=== PATIENT | female | born 1950 | race Caucasian/White ===

== ENCOUNTER → 2017-05-09 | Outpatient (CLI) | payer MEDICARE ==
--- NOTE | 2017-05-09 11:36 | Diagnostic Imaging Report ---
INDICATION: Screening. TECHNIQUE: Screening digital mammography was performed bilaterally with a Computer Aided Detection (CAD) system. COMPARISON: 05/02/2016, 10/14/2014, and 09/26/2013. FINDINGS: There is a moderate amount of residual fibroglandular tissue bilaterally. There is a stable coarse calcification in the 12 o'clock position of the right breast. There are vascular calcifications. There is no new dominant mass, spiculated lesion, or suspicious calcification identified. IMPRESSION: Benign findings. ACR BI-RADS Category 2: Benign findings. Result letter will be mailed to the patient. Note: At least 10% of breast cancer is not imaged by mammography. Dictated by: Dictated on workstation # [id number]
== END ==
LOC: RAD 09:24
PROVIDERS: ATTEND Family Medicine
DX: Z12.31 Encounter for screening mammogram for malignant neoplasm of breast (principal)
CPT/HCPCS: 77067

== ENCOUNTER 2020-02-05 19:10 | Inpatient (IN) | payer MEDICARE ==
[~2020-02-05] VITALS: Ht 172 cm; Wt 78.2 kg
--- NOTE | 2020-02-05 19:22 | NUR ---
[address] via cart with monitor by TIFFANIE Mesa. [address] to room. Post CT NIH scale completed. [address] for CTA via cart by TIFFANIE Mesa. 2009 Patient returned from CTA.
[2020-02-05 19:25] LABS: BASOPHILS % (AUTO) 0 % (0-10); EOSINOPHILS # (AUTO) 0.1 10^3/uL (0.0-0.3); EOSINOPHILS % (AUTO) 1 % (0-10); HEMATOCRIT 44 % (35-52); HEMOGLOBIN 15.1 G/DL (11.5-16.0); LYMPHOCYTES # (AUTO) 1.5 X 10^3 (1.0-4.0); LYMPHOCYTES % (AUTO) 22 % (12-44); MEAN CORPUSCULAR HEMOGLOBIN 30 PG (25-34); MEAN CORPUSCULAR HGB CONC 35 G/DL (32-36); MEAN CORPUSCULAR VOLUME 87 FL (80-99); MONOCYTES # (AUTO) 0.3 X 10^3 (0.0-1.0); MONOCYTES % (AUTO) 4 % (0-12); NEUTROPHILS # (AUTO) 5.1 X 10^3 (1.8-7.8); NEUTROPHILS % (AUTO) 73 % (42-75); PLATELET COUNT 186 10^3/uL (130-400); RED CELL DISTRIBUTION WIDTH 13.7 % (10.0-14.5); WHITE BLOOD COUNT 6.9 10^3/uL (4.3-11.0)
--- NOTE | 2020-02-05 19:30 | ED Neurological Problem ---
General Stated Complaint: POSSIBLE STROKE SYMPTOMS Source: patient History of Present Illness Date Seen by Provider: February 05, 2020 Time Seen by Provider: 19:15 Initial Comments PT ARRIVES VIA POV FROM HOME STATES AROUND NOON TODAY, SHE BEGAN HAVING RIGHT SIDE WEAKNESS STATES SHE WAS FINE WHEN SHE GOT UP THIS MORNING--HAS BEEN TO GET A HAIRCUT, CAME HOME, ATE BREAKFAST AND THEN WAS DRINKING COFFEE, WHEN SYMPTOMS BEGAN STATES THAT HER RIGHT LEG IS DRAGGING AND HAS DECREASED STRENGTH IN RIGHT HAND--STATES I COULDN'T PUSH THE BUTTONS ON RT [employer] Services" NO PARESTHESIAS NO CHEST PAIN OR SHORTNESS OF BREATH NO HEADACHE NO VISION CHANGES NO DIZZINESS NO PALPITATIONS NO PROBLEMS SWALLOWING, BUT THINKS HER SPEECH MIGHT HAVE BEEN A LITTLE SLURRED EARLIER-HAD PROBLEMS WITH WORDS WITH AN "S"--THOSE SYMPTOMS RESOLVED STATES SHE DID NOT SLEEP WELL AT ALL LAST NIGHT, AND HAD A LOW BACK ACHE DURING THE NIGHT, NO COMPLAINTS OF BACK PAIN NOW. NO HISTORY OF SIMILAR PT STATES HER BLOOD PRESSURE HAS BEEN A LITTLE ELEVATED AT TIMES, BUT HAS NEVER BEEN PRESCRIBED MEDICATIONS FOR BLOOD PRESSURE, OTHERWISE NO SIGNIFICANT MEDICAL PROBLEMS NO FEVER OR RECENT ILLNESS NO SICK CONTACTS OR KNOWN EXPOSURE TO CORONAVIRUS PCP: DR. BOND Allergies and Home Medications Allergies Coded Allergies: Penicillins (Verified Allergy, Severe, 02/05/20) "HIVES AND THROAT SWELLING" Sulfa (Sulfonamide Antibiotics) (Verified Allergy, Severe, 02/05/20) "HIVES AND THROAT SWELLING" Patient Home Medication List Home Medication List Reviewed: Yes Review of Systems Review of Systems Constitutional: no symptoms reported; No chills, No diaphoresis, No dizziness, No fever, No malaise, No weakness Eyes: No Symptoms Reported; Denies Blurred Vision, Denies Decreased Acuity, Denies Pain Ears, Nose, Mouth, Throat: no symptoms reported Respiratory: no symptoms reported; No cough, No short of breath Cardiovascular: no symptoms reported; No chest pain, No edema, No palpitations, No syncope, No vascular heart diseas Gastrointestinal: no symptoms reported; No nausea, No vomiting Genitourinary: no symptoms reported Musculoskeletal: see HPI Skin: no symptoms reported Psychiatric/Neurological: See HPI; Denies Cognitive Dysfunction, Denies Heada lexii, Denies Numbness, Denies Tingling Endocrine: No Symptoms Reported Hematologic/Lymphatic: No Symptoms Reported Past Fdwebec-Qurhqe-Kotxnu Hx Past Med/Social Hx: Reviewed and Corrections made Patient Social History Alcohol Use: Regular Use (DRINK WITH DINNER EVERY NIGHT) Recreational Drug Use: No Smoking Status: Never a Smoker Recent Foreign Travel: No Contact w/Someone Who Travel: No Past Medical History Surgeries: Yes (HYST/BSO) Hysterectomy, Oophorectomy Respiratory: No Cardiac: Yes (OCCASIONAL HTN--NEVER BEEN PRESCRIBED MEDICATIONS) Hypertension 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 oz. kg; BMI Method: General Appearance: WD/WN, no apparent distress HEENT: PERRL/EOMI, normal ENT inspection, TMs normal, pharynx normal Neck: non-tender, full range of motion, supple, normal inspection; No carotid bruit Respiratory: normal breath sounds, no respiratory distress, no accessory muscle use Cardiovascular: normal peripheral pulses, regular rate, rhythm, no edema, no JVD, no murmur Peripheral Pulses: 2+ Dorsalis Pedis (R), 2+ Left Dors-Pedis (L), 2+ Radial Pulses (R), 2+ Radial Pulses (L) Gastrointestinal: normal bowel sounds, non tender, soft, no organomegaly Back: normal inspection, no CVA tenderness, no vertebral tenderness Extremities: non-tender, no pedal edema, no calf tenderness 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, alert, normal mood/affect, oriented x 3; No abnormal assembly technician II-XII, No aphasia, No EOM palsy, No facial droop; motor weakness; No sensory deficit; other (MILD RIGHT ARM AND LEG WEAKNESS) Crainal Nerves: normal hearing, normal speech, PERRL; No abnormal speech, No facial droop, No facial paresthesias, No facial weakness, No gaze palsy, No hearing deficit (R), No hearing deficit (L) Motor/Sensory: no sensory deficit, weak motor strength RUE, weak motor strength RLE Reflexes: 2+ Bicep (R), 2+ Bicep (L), 2+ Knee (R), 2+ Knee (L) Skin: normal color, warm/dry Stroke NIH Stroke Scale Assessment Select: Initial Level of Consciousness: 0=Alert (0), Level of Consciousness- Questions: 0=Answers both month/age (0), LOC Commands: 0=Performs both tasks (0), Gaze: Normal (0), Visual Phillip: 0=No visual loss (0), Facial Movement (Facial Paresis): 0=Normal symmetrical mnt (0), Motor Function-Arms Right: 1=Drift (1), Motor Function-Arms Left: 0=No drift (0), Motor Function-Legs Right: 1=Drift (1), Motor Function-Legs Left: 0=No drift (0), Limb Ataxia: 0=Absent (0), Sensory: 0=Normal:no loss (0), Best Language: 0=No aphasia (0), Dysarthria: 0=Normal (0), Extinction & Inattention: 0=No abnormality (0), Total: 2 Stroke Thrombolytic Exclusion Age 18 or Over: Yes Acute intenal hemorrhage: No History of CVA: No Uncontrolled Coagulation Defec: No Intracranial Hemorrhage: No Severe Hypertension: No GI or Bleed: No Subarachnoid Hemorrhage: No Intracranial Neoplasm/Aneurysm: No Oral Anticoagulants: No Surgery or Trauma: No Puncture of Non-Compressible V: No Recent CPR: No Diabetic Hemorrhagic Retinopat: No Organ Biopsy: No Recent Obstetric Delivery: No Glucose: No Significant Hepatic Dysfunctio: No NIH Stoke Scale >22: No Bacterial Endocarditis: No Pericarditis: No Improving Symptoms: No Platelets: No TPA Contraindication: No IV - TPa Received IV - TPa Procedure Performed?: No (ONSET OF SYMPOTMS > 7 HOURS, AND NIH OF 2) Progress/Results/Core Measures Results/Orders Lab Results Laboratory Tests Test 02/05/20 18:19 02/05/20 19:19 Range/Units White Blood Count 6.9 4.3-11.0 10^3/uL Red Blood Count 5.00 4.35-5.85 10^6/uL Hemoglobin 15.1 11.5-16.0 G/DL Hematocrit 44 35-52 % Mean Corpuscular Volume 87 80-99 FL Mean Corpuscular Hemoglobin 30 25-34 PG Mean Corpuscular Hemoglobin Concent 35 32-36 G/DL Red Cell Distribution Width 13.7 10.0-14.5 % Platelet Count 186 130-400 10^3/uL Mean Platelet Volume 11.0 H 7.4-10.4 FL Neutrophils (%) (Auto) 73 42-75 % Lymphocytes (%) (Auto) 22 12-44 % Monocytes (%) (Auto) 4 0-12 % Eosinophils (%) (Auto) 1 0-10 % Basophils (%) (Auto) 0 0-10 % Neutrophils # (Auto) 5.1 1.8-7.8 X 10^3 Lymphocytes # (Auto) 1.5 1.0-4.0 X 10^3 Monocytes # (Auto) 0.3 0.0-1.0 X 10^3 Eosinophils # (Auto) 0.1 0.0-0.3 10^3/uL Basophils # (Auto) 0.0 0.0-0.1 10^3/uL Prothrombin Time 14.0 12.2-14.7 SEC INR Comment 1.0 0.8-1.4 Activated Partial Thromboplast Time 28 24-35 SEC D-Dimer 0.28 0.00-0.49 UG/ML Sodium Level 142 135-145 MMOL/L Potassium Level 3.8 3.6-5.0 MMOL/L Chloride Level 108 H 98-107 MMOL/L Carbon Dioxide Level 23 21-32 MMOL/L Anion Gap 11 5-14 MMOL/L Blood Urea Nitrogen 14 7-18 MG/DL Creatinine 0.94 0.60-1.30 MG/DL Estimat Glomerular Filtration Rate 59 BUN/Creatinine Ratio 15 Glucose Level 192 H 70-105 MG/DL Calcium Level 9.4 8.5-10.1 MG/DL Corrected Calcium 9.1 8.5-10.1 MG/DL Total Bilirubin 0.6 0.1-1.0 MG/DL Aspartate Amino Transf (AST/SGOT) 26 5-34 U/L Alanine Aminotransferase (ALT/SGPT) 31 0-55 U/L Alkaline Phosphatase 68 40-136 U/L Troponin I < 0.028 <0.028 NG/ML Total Protein 7.0 6.4-8.2 GM/DL Albumin 4.4 3.2-4.5 GM/DL Glucometer 179 H 70-110 MG/DL My Orders Orders - HERMAN,PERRY K DO Cbc With Automated Diff (02/05/20 19:17) Protime With Inr (02/05/20 19:17) Partial Thromboplastin Time (02/05/20 19:17) Comprehensive Metabolic Panel (02/05/20 19:17) Fibrin Degradation Products (02/05/20 19:17) Troponin I (02/05/20 19:17) Ua Culture If Indicated (02/05/20 19:17) Chest 1 View, Ap/Pa Only (02/05/20 19:17) Ekg Tracing (02/05/20 19:17) Nothing By Mouth (02/06/20 Breakfast) Accucheck Stat ONCE (02/05/20:17) Ed Iv/Invasive Line Start (02/05/20 19:17) Ed Iv/Invasive Line Start (02/05/20 19:17) Vital Signs Stroke Patient Q15M (02/05/20 19:17) Ct Head Wo-R/O Stroke (02/05/20 19:17) O2 (02/05/20:17) Intake & Output 06,14,22 (02/05/20 19:17) Monitor-Rhythm Ecg Trace Only (02/05/20 19:17) Dysphagia Screening Tool (02/05/20 19:) Lipid Panel (02/06/20 06:00) Ct Angio Head/Neck (02/05/20 19:42) Ed Iv/Invasive Line Start (02/05/20 19:46) Ns Iv 1000 Ml (Sodium Chloride 0.9%) (02/05/20 19:46) Iohexol Injection (Omnipaque 350 Mg/Ml 1 (02/05/20 20:00) Received Contrast (Hold Metformin- Contr (02/05/20 20:00) Ns (Ivpb) (Sodium Chloride 0.9% Ivpb Bag (02/05/20 20:00) Medications Given in ED Current Medications Medications Dose Ordered Sig/Antonia Route Start Time Stop Time Status Last Admin Dose Admin Iohexol 75 ml ONCE ONCE IV 02/05/20 20:00 02/05/20 20:01 DC 02/05/20 20:11 75 ML Sodium Chloride 100 ml ONCE ONCE IV 02/05/20 20:00 02/05/20 20:01 DC 02/05/20 20:11 80 ML Vital Signs/I&O 02/05/20 19:10 Temp 37.0 Pulse 91 Resp 20 B/P (MAP) 184/105 (131) Pulse Ox 97 O2 Delivery Room Air Progress Progress Note : Progress Note NO DETERIORATION IN PT'S CONDITION DURING ER STAY GIVEN LABETALOL FOR ELEVATED BLOOD PRESSURE--PRESSURE BEGINNING TO LOWER AT TIME OF ADMIT Initial ECG Impression Date: February 05, 2020 Initial ECG Impression Time: 19:45 Initial ECG Rate: 83 Initial ECG Rhythm: Normal Sinus Initial ECG Comparisson: No Previous ECG Available Diagnostic Imaging Comments CXR--NO ACUTE PROCESS CT HEAD-- IMPRESSION: No hemorrhage, edema, or acute appearing abnormalities identified PER RADIOLOGIST REPORTS AT 1940 CT ANGIOGRAM OF HEAD/NECK--PER RADIOLOGIST REPORT AT 2029 IMPRESSION: Unremarkable CT angiographic study of neck and head. No large vessel occlusion, thrombus or hemodynamically significant stenosis. Reviewed: Reviewed by Me Departure Communication (Admissions) 2004--DISCUSSED WITH DR. BOND, ACCEPTS PT FOR ADMIT, PENDING CT ANGIOGRAM RESULTS Impression Primary Impression: CVA WITH MILD RIGHT SIDED WEAKNESS Additional Impressions: Malignant hypertension Hyperglycemia Disposition: ADMITTED INPATIENT Condition: Stable Admissions Decision to Admit Reason: Admit from ER (General) Decision to Admit/Date: February 05, 2020 Time/Decision to Admit Time: 20:05 Departure-Patient Inst. Referrals: ANA PAULA BOND DO (PCP/Family) Primary Care Physician PERRY SUTTON DO February 05, 2020 19:30
[2020-02-05 19:35] LABS: ALBUMIN 4.4 GM/DL (3.2-4.5); CHLORIDE 108 MMOL/L (98-107); POTASSIUM 3.8 MMOL/L (3.6-5.0); SODIUM 142 MMOL/L (135-145)
--- NOTE | 2020-02-05 19:35 | Diagnostic Imaging Report ---
INDICATION: Right-sided weakness, symptoms 7 hours in duration with hypertension. FINDINGS: The heart size and configuration are normal. The lungs are clear. No failure, effusion, or pneumothorax. No free air beneath the diaphragms. IMPRESSION: Normal frontal chest. Dictated by: Dictated on workstation # [id number]
[2020-02-05 19:36] LABS: CALCIUM 9.4 MG/DL (8.5-10.1)
--- NOTE | 2020-02-05 19:36 | Diagnostic Imaging Report ---
PROCEDURE: CT head wo r/o stroke. TECHNIQUE: Multiple contiguous axial images were obtained through the brain without the use of intravenous contrast. Auto Exposure Controls were utilized during the CT exam to meet ALARA standards for radiation dose reduction. INDICATION: Speech problems, head pain and dizziness, right-sided weakness, symptoms of 7 hours duration, hypertensive patient. There are intracranial atherosclerotic vascular calcifications. There is incidental calcifications in the left basal ganglia. There were no findings of intracerebral involvement by hemorrhage. No focal or generalized cerebral edema. No sulcal effacement. No loss of the normal cortical callahan-white matter differentiations. No suspicious asymmetric intraluminal arterial hyperdensities. No abnormal extra-axial fluid collection. There was no mass or mass effect. Orbits, sinuses, and calvarium all appeared nonacute. IMPRESSION: No hemorrhage, edema, or acute appearing abnormalities identified Dictated by: Dictated on workstation # [id number]
[2020-02-05 19:38] LABS: GLUCOSE 192 MG/DL (70-105)
[2020-02-05 19:39] LABS: CARBON DIOXIDE 23 MMOL/L (21-32)
[2020-02-05 19:40] LABS: BILIRUBIN,TOTAL 0.6 MG/DL (0.1-1.0)
[2020-02-05 19:41] LABS: ALKALINE PHOSPHATASE 68 U/L (40-136); CREATININE SERUM 0.94 MG/DL (0.60-1.30); GFR ESTIMATED 59
[2020-02-05 19:42] LABS: BUN/CREATININE RATIO 15
[2020-02-05 19:44] LABS: ALANINE AMINOTRANSFERASE 31 U/L (0-55)
[2020-02-05] MEDS ORDERED: NS IV 1000 ML 1,000 ML IV SCH (19:46)
[2020-02-05] MEDS ORDERED: HOLD METFORMIN - RECEIVED CONTRAST 20 ML VIAL IV SCH (20:00)
[2020-02-05] MEDS ORDERED: IOHEXOL 350 MG/ML 100 ML (OMNIPAQUE 350) VIAL IV ONE (20:00)
[2020-02-05] MEDS ORDERED: NS 100 ML (IVPB) BAG IV ONE (20:00)
--- NOTE | 2020-02-05 20:22 | Diagnostic Imaging Report ---
PROCEDURE: CT angiography of the head and CT angiography of the neck with and without contrast. TECHNIQUE: Contiguous noncontrast images were obtained from the skull base through the vertex. After intravenous contrast administration, helical CT angiography of the neck was performed. Source data was reformatted into 3D MIP projections. Delayed post contrast acquisition was also obtained. Auto Exposure Controls were utilized during the CT exam to meet ALARA standards for radiation dose reduction. INDICATION: Possible strokelike symptoms, difficulty with speech, head pain and dizziness. FINDINGS: CT angiogram neck: Cervical vertebral arteries patent and codominant. The bilateral common carotid arteries are patent. Carotid bifurcations are widely patent. The cervical internal carotids are widely patent. CT angiogram head: The intradural vertebral arteries, the basilar and the bilateral ENGINE DISPATCHER segments are unremarkable. The intracranial ICAs reveal non-stenosing mild eccentric calcified plaques at their cavernous segments. The A1 segments, the ACOM and the paired anterior cerebral arteries are unremarkable. Bilateral middle cerebral arterial segments and primary branches show no gross asymmetry, filling defect or intraluminal thrombus. There is no evidence for large vessel occlusion. Delayed images show normal enhancement of the major dural venous sinuses with no abnormal parenchymal or meningeal enhancement appreciable. No aneurysm or vascular malformation. IMPRESSION: Unremarkable CT angiographic study of neck and head. No large vessel occlusion, thrombus or hemodynamically significant stenosis. Dictated by: Dictated on workstation # [id number]
[2020-02-05 20:25] LABS: FIBRIN DEGRADATION PRODUCTS 0.28 UG/ML (0.00-0.49)
[2020-02-05] MEDS ORDERED: CLOPIDOGREL 300 MG (PLAVIX) TABLET PO ONE ×2 (20:45→20:54)
[2020-02-05] MEDS ORDERED: LABETALOL HCL 20 MG/4 ML VIAL IV ONE (20:45)
--- NOTE | 2020-02-05 21:18 | NUR ---
Patient passed dysphagia test without difficulty. Patient able to swallow pills without any problems.
[2020-02-05 21:28] LABS: BILIRUBIN,URINE NEGATIVE (NEGATIVE); CLARITY,URINE CLEAR; COLOR,URINE YELLOW; GLUCOSE, URINE (UA) NEGATIVE (NEGATIVE); KETONES,URINE NEGATIVE (NEGATIVE); LEUKOCYTE ESTERASE ,URINE NEGATIVE (NEGATIVE); NITRITE,URINE NEGATIVE (NEGATIVE); PROTEIN,URINE NEGATIVE (NEGATIVE)
[2020-02-05 22:01] VITALS: BP 178/81
[2020-02-05 22:15] VITALS: BP 166/74
[2020-02-05 22:15] LABS: BACTERIA,URINE NEGATIVE /HPF; SQUAMOUS EPITHELIAL CELL,UR RARE /HPF
[2020-02-05 22:30] VITALS: BP 156/73
[2020-02-05 22:45] VITALS: BP 156/74
--- OUTSIDE RECORDS SUMMARY | 2020-02-05 22:56 | XMS REPORT | CCD ---
Author Author Maria G Odell D.O. Organization [facility] Address [address] [place] [phone] Phone Care Team Providers Care Transcribing Machine Mechanic Name Role Phone PP Unavailable CCM Unavailable Summary Purpose Interface Exchange Insurance Providers Payer name Policy type / Coverage type Covered democrat ID Effective Begin Date Effective End Date WPS MEDICARE [place] B [place] Medicare [id number] 2014 Unknown Blue Cross Blue Shield Medicare [id number] 2014 Unknown Family history Father Diagnosis Age At Onset No Family Disease Entered N/A Mother Diagnosis Age At Onset No Family Disease Entered N/A Social History Social History Element Codes Description Effective Dates Marital status Unknown M arried 09/17/2013 Number of children Unknown 1 09/17/2013 Employment Unknown 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 09/17/[address]: 8965424 Former smoker 09/17/[address]: 937166 Currently drinks alcohol 09/17/2013 Allergies, Adverse Reactions, Alerts Substance Reaction Codes Entered Date Inactivated Date Status * NO KNOWN FOOD DONN RGIES Unknown 09/17/2013 No Inactive Date Active * NO KNOWN ENVIRONME NTAL ALLERGIES Unknown 09/17/2013 No Inactive Date Active _ Unknown 09/17/2013 No Inactive Date Active PENICILLINS Unknown 09/17/2013 No In active Date Active Past Medical History Illness Codes Condition Status Onset Date Resolved Date Encounter for daniel l adult medical examination without abnormal findings ICD-9: V70.0 ICD-10: Z00.00 Active 05/02/2017 Unknown Mixed hyperlipidemia ICD-9: 272.4 ICD-10: E78.2 Active 05/02/2017 Unknown Vitamin D deficiency , unspecified ICD-9: 268.9 ICD-10: E55.9 Active 05/02/2017 Unknown Psoriasis, unspecified ICD-9: 696.1 ICD-10: L40.9 Active 05/02/2017 Unknown HYPERLIPIDEMIA NEC/NOS ICD-9: 272.4 Active 10/13/2014 Unknown Rosacea ICD-9: 695.3 Active 10/13/2014 Unknow n VITAMIN D DEFICIENCY ICD-9: 268.9 Active 10/13/2014 Unknown ROUTINE MEDICAL EXAM ICD-9: V70.0 Active 09/18/2014 Unknown Mastalgia ICD-9: 611.71 Active 09/17/2013 Unknow n Osteopenia ICD-9: 733.90 Active 09/17/2013 Unknow n Problems Condition Codes Effectiv e Dates Condition Status Encounter for genera l adult medical examination without abnormal findings ICD-9: V70.0 ICD-10: Z00.00 05/02/2017 Active Mixed hyperlipidemia ICD-9: 272.4 ICD-10: E78.2 05/02/2017 Active Vitamin D deficiency , unspecified ICD-9: 268.9 ICD-10: E55.9 05/02/2017 Active Psoriasis, unspecified ICD-9: 696.1 ICD-10: L40.9 05/02/2017 Active HYPERLIPIDEMIA NEC/NOS ICD-9: 272.4 10/13/2014 Active Rosacea ICD-9: 695.3 10/13/2014 Active VITAMIN D DEFICIENCY ICD-9: 268.9 10/13/2014 Active ROUTINE MEDICAL EXAM ICD-9: V70.0 09/18/2014 Active Mastalgia ICD-9: 611.71 09/17/2013 Active Osteopenia ICD-9: 733.90 09/17/2013 Active Medications Medication Codes Instruc tions Start Date Stop Date Sta tus Fill Instructions alprazolam 0.5 mg ta blet RxNorm: 808660 1/2-1 Tablet(s) PO QH S as needed for sleep and 1/2 to 1 tablet daily as needed for severe stress 09/29/2015 05/01/2017 Inactive alprazolam 0.5 mg ta blet RxNorm: 918215 1/2-1 Tablet(s) PO QH S as needed for sleep and 1/2 to 1 tablet daily as needed for severe stress 09/07/2015 09/28/2015 Inactive Vitamin D2 1,000 uni t capsule RxNorm: 488996 3 Capsule(s) PO QD No Start Date Active vitamin E (dl, aceta te) 400 unit capsule RxNorm: 802603 1 Capsule(s) PO QD No Start Date Active Vitamin D3 1,000 uni t capsule RxNorm: 125831 1 Capsule(s) PO QD No Start Date 10/12/2014 Inactive alprazolam 0.5 mg ta blet RxNorm: 045763 1/2-1 Tablet(s) PO QH S as needed for sleep No Start Date 09/06/2015 Inactive Vitamin D3 1,000 uni t capsule RxNorm: 216486 2 Capsule(s) PO QD No Start Date 10/14/2014 Inactive Medication Administered No Medication Administered data Immunizations No Immunization data Assessments Condition Codes Effectiv e Dates Mixed hyperlipidemia ICD-10: E78.2 ICD-9: 272.4 04/24/2019 Encounter for general adult medical exam ination without abnormal findings ICD-10: Z00.00 ICD-9: V70.0 04/24/2019 Vitamin D deficiency, unspecified IC D-10: E55.9 ICD-9: 268.9 05/03/2017 Psoriasis, unspecified ICD-10: L40.9 ICD-9: 696.1 05/02/2017 HYPERLIPIDEMIA NEC/NOS ICD-9: 272.4 10/13/2014 Rosacea ICD-9: 695.3 10/2014 VITAMIN D DEFICIENCY ICD-9: 268.9 10/13/2014 ROUTINE MEDICAL EXAM ICD-9: V70.0 10/13/2014 Osteopenia ICD-9: 733.90 09/17/2013 Mastalgia ICD-9: 611.71 09/17/2013 Reason For Visit Reason For Visit Effective Dates Notes well woman exam (65+ years) 04/24/2019 lab draw 05/03/2017 Annual Checkup 05/02/2017 Last Normal Mammogram 04/2016 Annual Checkup 10/13/2014 Welcome to Medicare ~generic 09/17/2013 Re-e stablishing Results Observation Observation Code Item Item Code Result Date THYROID STIMULATING HORMONE 60308 TSH 1.020 uIU/mL 9 [facility] 00257 Choles terol 226 mg/dL 04/24/2019 LIP[facility] GROUP 05975 Trigly ceride 86 mg/dL 04/24/2019 [facility] 43575 HDL CH OLESTEROL 55 mg/dL 04/24/2019 [facility] 99709 Chol/H DL Ratio 4.11 ratio 04/24/2019 LIP[facility] GROUP 76708 NON-HD L Chol 171 mg/dL 04/24/2019 [facility] GROUP 59483 LDL Ch olesterol 154 mg/dL 04/24/2019 GFR CALC 5962724 GFR Non Afr Amr >60 mL/min 04/24/2019 GFR CALC 2926588 GFR Afr Amr >60 mL/min 04/24/2019 COMPLETE BLOOD COUNT 7844004 WBC 5.2 10e9/L 04/24/2019 COMPLETE BLOOD COUNT [id number] RBC 4.91 10e12/L 9 COMPLETE BLOOD COUNT 3380983 HEMOGLOBIN 15.1 g/dL 04/24/2019 COMPLETE BLOOD COUNT 6030130 HEMATOCRIT 44.5 % 04/24/2019 COMPLETE BLOOD COUNT 2139755 MCV 90.6 fL 04/24/2019 COMPLETE BLOOD COUNT 4041281 MCH 30.8 pg 04/24/2019 COMPLETE BLOOD COUNT 9774211 MCHC 33.9 g/dL 04/24/2019 COMPLETE BLOOD COUNT 2725313 PLATELET COUNT 187 10e9/L 04/24/2019 COMPLETE BLOOD COUNT 9695761 Mean Plt Volume 11.5 fL 04/24/2019 COMPLETE BLOOD COUNT 5974436 Neut Auto 68.2 % 04/24/2019 COMPLETE BLOOD COUNT 3591488 Lymph Auto 23.3 % 04/24/2019 COMPLETE BLOOD COUNT 5294096 [place] Auto 6.0 % 04/24/2019 COMPLETE BLOOD COUNT 0143041 RDW 13.7 % 04/24/2019 COMPLETE BLOOD COUNT 8535217 Eos Auto 2.3 % 04/24/2019 COMPLETE BLOOD COUNT 5606448 Baso Auto 0.2 % 04/24/2019 COMPLETE BLOOD COUNT 8705559 Neutrophil Abs 3.55 10e9/L 04/24/2019 COMPLETE BLOOD COUNT 9374547 Lymphocyte Abs 1.21 10e9/L 04/24/2019 COMPLETE BLOOD COUNT 1056845 Monocyte Abs 0.31 10e9/L 04/24/2019 COMPLETE BLOOD COUNT 9391216 Eosinophil Abs 0.12 10e9/L 04/24/2019 COMPLETE BLOOD COUNT 4191879 RDW-SD 44.4 fL 04/24/2019 COMPLETE BLOOD COUNT [id number] Basophil Abs 0.01 10e9/L 04/24/2019 COMPREHENSIVE METABOLIC 45226 AST 19 U/L 04/24/2019 COMPREHENSIVE METABOLIC 36743 ALT 17 U/L 04/24/2019 COMPREHENSIVE METABOLIC 01168 BUN 17 mg/dL 04/24/2019 COMPREHENSIVE METABOLIC 19103 ALBUMIN 4.3 g/dL 04/24/2019 COMPREHENSIVE METABOLIC 22717 CHLORIDE 104 mmol/L 04/24/2019 COMPREHENSIVE METABOLIC 91354 Bili Total 0.7 mg/dL 04/24/2019 COMPREHENSIVE METABOLIC 45205 ALK PHOS 58 U/L 04/24/2019 COMPREHENSIVE METABOLIC 25058 SODIUM 143 mmol/L 04/24/2019 COMPREHENSIVE METABOLIC 74269 CREATININE 0.85 mg/dL 04/24/2019 COMPREHENSIVE METABOLIC 49101 CALCIUM 9.3 mg/dL 04/24/2019 COMPREHENSIVE METABOLIC 85540 POTASSIUM 4.1 mmol/L 04/24/2019 COMPREHENSIVE METABOLIC 48206 Total Protein 6.3 g/dL 04/24/2019 COMPREHENSIVE METABOLIC 33665 Glucose 99 mg/dL 04/24/2019 COMPREHENSIVE METABOLIC 68904 Bicarbonate 29 mmol/L 04/24/2019 COMPREHENSIVE METABOLIC 51123 AGAP 10 mmol/L 04/24/2019 COMPREHENSIVE METABOLIC 36052 AST 17 U/L 05/03/2017 COMPREHENSIVE METABOLIC 93249 ALT 17 U/L 05/03/2017 COMPREHENSIVE METABOLIC 46493 BUN 15 mg/dL 05/03/2017 COMPREHENSIVE METABOLIC 25627 ALBUMIN 4.2 g/dL 05/03/2017 COMPREHENSIVE METABOLIC 52205 CHLORIDE 106 mmol/L 05/03/2017 COMPREHENSIVE METABOLIC 01056 Bili Total 0.7 mg/dL 05/03/2017 COMPREHENSIVE METABOLIC 75436 ALK PHOS 48 U/L 05/03/2017 COMPREHENSIVE METABOLIC 39505 SODIUM 142 mmol/L 05/03/2017 COMPREHENSIVE METABOLIC 20177 CREATININE 0.94 mg/dL 05/03/2017 COMPREHENSIVE METABOLIC 06798 CALCIUM 9.0 mg/dL 05/03/2017 COMPREHENSIVE METABOLIC 64343 POTASSIUM 4.1 mmol/L 05/03/2017 COMPREHENSIVE METABOLIC 15021 Total Protein 6.3 g/dL 05/03/2017 COMPREHENSIVE METABOLIC 14385 Glucose 94 mg/dL 05/03/2017 COMPREHENSIVE METABOLIC 60313 Bicarbonate 29 mmol/L 05/03/2017 COMPREHENSIVE METABOLIC 57071 AGAP 7 mmol/L 05/03/2017 COMPLETE BLOOD COUNT 6963395 WBC 4.6 10e9/L 05/03/2017 COMPLETE BLOOD COUNT 8911119 RBC 4.89 10e12/L 7 COMPLETE BLOOD COUNT 6774416 HEMOGLOBIN 15.1 g/dL 05/03/2017 COMPLETE BLOOD COUNT 7833639 HEMATOCRIT 45.6 % 05/03/2017 COMPLETE BLOOD COUNT 2395947 MCV 93.3 fL 05/03/2017 COMPLETE BLOOD COUNT 9677288 MCH 30.9 pg 05/03/2017 COMPLETE BLOOD COUNT 5587415 MCHC 33.1 g/dL 05/03/2017 COMPLETE BLOOD COUNT 5020529 PLATELET COUNT 175 10e9/L 05/03/2017 COMPLETE BLOOD COUNT 3201838 Mean Plt Volume 11.3 fL 05/03/2017 COMPLETE BLOOD COUNT 1606916 Neut Auto 59.1 % 05/03/2017 COMPLETE BLOOD COUNT 6883584 Lymph Auto 30.7 % 05/03/2017 COMPLETE BLOOD COUNT 2025249 [place] Auto 6.1 % 05/03/2017 COMPLETE BLOOD COUNT 6226429 RDW 13.8 % 05/03/2017 COMPLETE BLOOD COUNT 4968730 Eos Auto 3.7 % 05/03/2017 COMPLETE BLOOD COUNT 9523874 Baso Auto 0.4 % 05/03/2017 COMPLETE BLOOD COUNT 8199182 Neutrophil Abs 2.72 10e9/L 05/03/2017 COMPLETE BLOOD COUNT 9512693 Lymphocyte Abs 1.41 10e9/L 05/03/2017 COMPLETE BLOOD COUNT 3040190 Monocyte Abs 0.28 10e9/L 05/03/2017 COMPLETE BLOOD COUNT 9914142 Eosinophil Abs 0.17 10e9/L 05/03/2017 COMPLETE BLOOD COUNT 5216230 RDW-SD 46.1 fL 05/03/2017 COMPLETE BLOOD COUNT 8509193 Basophil Abs 0.02 10e9/L 05/03/2017 LIPID GROUP 47303 Choles terol 207 mg/dL 05/03/2017 LIPID GROUP 03187 Trigly ceride 85 mg/dL 05/03/2017 LIP[facility] GROUP 44979 HDL CH OLESTEROL 58 mg/dL 05/03/2017 LIP[facility] GROUP 19499 Chol/H DL Ratio 3.57 ratio 05/03/2017 LIP[facility] GROUP 20814 NON-HD L Chol 149 mg/dL 05/03/2017 LIP[facility] GROUP 38848 LDL Ch olesterol 132 mg/dL 05/03/2017 FREE T4 40370 T4 Free 1.05 ng/dL 05/03/2017 VITAMIN D TOTAL (25 HYDROXY) 04071 Vitamin D 25 OH 44 ng/mL 7 GFR CALC 9525870 GFR Non Afr Amr 59 mL/min 05/03/2017 GFR CALC 8693530 GFR Afr Amr >60 mL/min 05/03/2017 THYROID STIMULATING HORMONE 00979 TSH 1.427 uIU/mL 7 ANTINUCLEAR ANTIBODY SCREEN 29332 GREGORY SCR <1:80 10/14/2014 THYROID STIMULATING HORMONE 18001 TSH 1.340 uIU/ML 5 VITAMIN D TOTAL (25 HYDROXY) 07704 VIT D TOTL 34 NG/ML 10/13/2014 COMPREHENSIVE METABOLIC 17301 AST 18 U/L 10/13/2014 COMPREHENSIVE METABOLIC 29624 ALT 15 IU/L 10/13/2014 COMPREHENSIVE METABOLIC 86575 BUN 15 MG/DL 10/13/2014 COMPREHENSIVE METABOLIC 38542 ALBUMIN 4.8 GM/DL 10/13/2014 COMPREHENSIVE METABOLIC 86569 CHLORIDE 105 MMOL/L 10/13/2014 COMPREHENSIVE METABOLIC 24188 BILI TOT 0.8 MG/DL 10/13/2014 COMPREHENSIVE METABOLIC 21769 ALK PHOS 61 U/L 10/13/2014 COMPREHENSIVE METABOLIC 15277 SODIUM 139 MMOL/L 10/13/2014 COMPREHENSIVE METABOLIC 18360 CREATININE 0.77 MG/DL 10/13/2014 COMPREHENSIVE METABOLIC 77026 CALCIUM 9.6 MG/DL 10/13/2014 COMPREHENSIVE METABOLIC 06201 POTASSIUM 4.1 MMOL/L 10/13/2014 COMPREHENSIVE METABOLIC 04356 PROT TOT 6.9 GM/DL 10/13/2014 COMPREHENSIVE METABOLIC 05796 Glucose 107 MG/DL 10/13/2014 COMPREHENSIVE METABOLIC 05862 BICARB 28 MMOL/L 10/13/2014 COMPREHENSIVE METABOLIC 42683 ANION GAP 6 MEQ/L 10/13/2014 GFR CALC 0239135 GFR AA >60 ML/MIN 10/13/2014 GFR CALC 7609871 GFR NON -AA >60 ML/MIN 10/13/2014 FREE T4 96313 FREE T4 1.12 NG/DL 10/13/2014 LIP[facility] GROUP [address] 60 MG/DL 10/13/2014 LIP[facility] GROUP 49210 TRIG 86 MG/DL 10/13/2014 LIP[facility] GROUP 96527 TEST L DL 149 MG/DL 10/13/2014 LIPID GROUP 36588 CHOL 226 MG/DL 10/13/2014 LIP[facility] GROUP 45191 RCHOL/ HDL 3.77 RATIO 10/13/2014 LIPID GROUP 92279 NON-HD L CH 166 MG/DL 10/13/2014 COMPLETE BLOOD COUNT 0062334 WBC 5.4 10e9/L 10/13/2014 COMPLETE BLOOD COUNT 2230409 RBC 4.96 10e12/L 5 COMPLETE BLOOD COUNT 2372427 HGB 15.4 g/dL 10/13/2014 COMPLETE BLOOD COUNT 1145141 HCT DET 44.2 % 10/13/2014 COMPLETE BLOOD COUNT 7868597 MCV 89.1 fL 10/13/2014 COMPLETE BLOOD COUNT 7234847 MCH 31.0 pg 10/13/2014 COMPLETE BLOOD COUNT 7490444 MCHC 34.8 g/dL 10/13/2014 COMPLETE BLOOD COUNT 3281215 PLT 175 10e9/L 10/13/2014 COMPLETE BLOOD COUNT 7084452 MPV 11.7 fL 10/13/2014 COMPLETE BLOOD COUNT 5294211 EDMAR % 70.4 % 10/13/2014 COMPLETE BLOOD COUNT 5550152 LY % 23.3 % 10/13/2014 COMPLETE BLOOD COUNT 1613116 MON % 5.0 % 10/13/2014 COMPLETE BLOOD COUNT 2405102 EOS % 1.1 % 10/13/2014 COMPLETE BLOOD COUNT 2902588 BASO % 0.2 % 10/13/2014 COMPLETE BLOOD COUNT 1480770 RDW 13.4 % 10/13/2014 COMPLETE BLOOD COUNT 9952304 ABS EDMAR 3.80 10e9/L 10/13/2014 COMPLETE BLOOD COUNT 6779289 ABS LYMPH 1.26 10e9/L 10/13/2014 COMPLETE BLOOD COUNT 2173356 ABS MONO 0.27 10e9/L 10/13/2014 COMPLETE BLOOD COUNT 7358470 ABS EOS 0.06 10e9/L 10/13/2014 COMPLETE BLOOD COUNT 2606038 ABS BASO 0.01 10e9/L 10/13/2014 COMPLETE BLOOD COUNT 6397984 RDW-SD 43.2 fL 10/13/2014 GFR CALC 9849821 GFR AA >60 ML/MIN 09/19/2013 GFR CALC 3014850 GFR NON -AA >60 ML/MIN 09/19/2013 THYROID STIMULATING HORMONE 03371 TSH 0.982 uIU/ML 4 [facility] [address] 58 MG/DL 09/17/2013 LIPID GROUP 20937 TRIG 65 MG/DL 09/17/2013 LIPID GROUP 75424 TEST L DL 138 MG/DL 09/17/2013 LIPID GROUP 87508 CHOL 209 MG/DL 09/17/2013 LIPID GROUP 61949 RCHOL/ HDL 3.60 RATIO 09/17/2013 VITAMIN D TOTAL (25 HYDROXY) 37974 VIT D TOTL 32 NG/ML 09/17/2013 COMPLETE BLOOD COUNT 7789990 WBC 7.2 10e9/L 09/17/2013 COMPLETE BLOOD COUNT 6517092 RBC 4.82 10e12/L 4 COMPLETE BLOOD COUNT 3647033 HGB 15.1 g/dL 09/17/2013 COMPLETE BLOOD COUNT 6896728 HCT DET 43.8 % 09/17/2013 COMPLETE BLOOD COUNT 0980743 MCV 90.9 fL 09/17/2013 COMPLETE BLOOD COUNT 6135095 MCH 31.3 pg 09/17/2013 COMPLETE BLOOD COUNT 6319705 MCHC 34.5 g/dL 09/17/2013 COMPLETE BLOOD COUNT 6461308 PLT 202 10e9/L 09/17/2013 COMPLETE BLOOD COUNT 3163847 MPV 11.3 fL 09/17/2013 COMPLETE BLOOD COUNT 7977028 EDMAR % 80.3 % 09/17/2013 COMPLETE BLOOD COUNT 0543093 LY % 14.2 % 09/17/2013 COMPLETE BLOOD COUNT 5179898 MON % 5.0 % 09/17/2013 COMPLETE BLOOD COUNT 1864801 EOS % 0.4 % 09/17/2013 COMPLETE BLOOD COUNT 1779181 BASO % 0.1 % 09/17/2013 COMPLETE BLOOD COUNT 2998139 RDW 13.1 % 09/17/2013 COMPLETE BLOOD COUNT 7738609 ABS EDMAR 5.78 10e9/L 09/17/2013 COMPLETE BLOOD COUNT 4993651 ABS LYMPH 1.02 10e9/L 09/17/2013 COMPLETE BLOOD COUNT 4161749 ABS MONO 0.36 10e9/L 09/17/2013 COMPLETE BLOOD COUNT 8767906 ABS EOS 0.03 10e9/L 09/17/2013 COMPLETE BLOOD COUNT 5781443 ABS BASO 0.01 10e9/L 09/17/2013 COMPLETE BLOOD COUNT 4936476 RDW-SD 43.0 fL 09/17/2013 COMPREHENSIVE METABOLIC 39591 AST 16 U/L 09/17/2013 COMPREHENSIVE METABOLIC 62302 ALT 15 IU/L 09/17/2013 COMPREHENSIVE METABOLIC 59497 BUN 14 MG/DL 09/17/2013 COMPREHENSIVE METABOLIC 63164 ALBUMIN 4.7 GM/DL 09/17/2013 COMPREHENSIVE METABOLIC 75270 CHLORIDE 104 MMOL/L 09/17/2013 COMPREHENSIVE METABOLIC 21226 BILI TOT 0.7 MG/DL 09/17/2013 COMPREHENSIVE METABOLIC 17659 ALK PHOS 64 U/L 09/17/2013 COMPREHENSIVE METABOLIC 95977 SODIUM 140 MMOL/L 09/17/2013 COMPREHENSIVE METABOLIC 83955 CREATININE 0.77 MG/DL 09/17/2013 COMPREHENSIVE METABOLIC 00740 CALCIUM 9.7 MG/DL 09/17/2013 COMPREHENSIVE METABOLIC 78308 POTASSIUM 3.8 MMOL/L 09/17/2013 COMPREHENSIVE METABOLIC 63426 PROT TOT 6.8 GM/DL 09/17/2013 COMPREHENSIVE METABOLIC 04558 Glucose 114 MG/DL 09/17/2013 COMPREHENSIVE METABOLIC 42076 BICARB 26 MMOL/L 09/17/2013 COMPREHENSIVE METABOLIC 10291 ANION GAP 10 MEQ/L 09/17/2013 FREE T4 18627 FREE T4 1.24 NG/DL 09/17/2013 Review of Systems System Result Effective Dates Constitutional No night sweats 04/24/2019 Constitutional No fatigue 04/24/2019 Constitutional No fever 04/24/2019 Constitutional No insomnia 04/24/2019 Constitutional No weight loss 04/24/2019 Eyes No eye pain 019 Eyes No photophobia 04/11 Eyes No vision change Eyes No visual disturbance 04/24/2019 Ears/Nose/Throat/Neck No hearing loss 04/24/2019 Ears/Nose/Throat/Neck No nasal discharge 04/24/2019 Ears/Nose/Throat/Neck No sinus congestion 04/24/2019 Ears/Nose/Throat/Neck No sore throat 04/24/2019 Cardiovascular No arrhythmia 04/24/2019 Cardiovascular No chest pain/pressure 04/24/2019 Cardiovascular No edema 04/24/2019 Cardiovascular No exercise intolerance 04/24/2019 Cardiovascular No orthopnea 04/24/2019 Cardiovascular No palpitations 04/24/2019 Respiratory No asthma Respiratory No cough Respiratory No dyspnea 0 04/24/2019 Respiratory No pleuritic pain 04/24/2019 Respiratory No productive sputum 04/24/2019 Respiratory No wheezing 04/24/2019 Gastrointestinal No hemorrhoids 04/24/2019 Gastrointestinal No hepatitis 04/24/2019 Gastrointestinal No abdominal pain 04/24/2019 Gastrointestinal No constipation 04/24/2019 Gastrointestinal No diarrhea 04/24/2019 Gastrointestinal No gastroesophageal reflu x 04/24/2019 Gastrointestinal No melena 04/24/2019 Gastrointestinal No nausea 04/24/2019 Gastrointestinal No vomiting 04/24/2019 Genitourinary/Nephrology No dysuria 04/24/2019 Genitourinary/Nephrology No nocturia 04/24/2019 Genitourinary/Nephrology No urinary incontinence 04/24/2019 Musculoskeletal No muscle weakness 04/24/2019 Musculoskeletal No myalgias 04/24/2019 Musculoskeletal No stiffness 04/24/2019 Musculoskeletal No swelling 04/24/2019 Dermatologic No rash Dermatologic No scar Neurologic No dizziness 04/24/2019 Neurologic No headache 0 04/24/2019 Neurologic No neck pain 04/24/2019 Neurologic No syncope Psychiatric No anxiety 0 04/24/2019 Psychiatric No depression 04/24/2019 Endocrine No goiter 04/11 Endocrine No hyperglycemia 04/24/2019 Endocrine No hypoglycemia 04/24/2019 Hematologic/Lymphatic No abnormal ec chymoses 04/24/2019 Hematologic/Lymphatic No petechiae 04/24/2019 Hematologic/Lymphatic No abnormal bl eeding and bruising 04/24/2019 Hematologic/Lymphatic No anemia 04/24/2019 Hematologic/Lymphatic No lymph node enlargement/mass 04/24/2019 Allergy/Immunology No food allergy 04/24/2019 Constitutional No night sweats 05/02/2017 Constitutional No fatigue 05/02/2017 Constitutional No fever 05/02/2017 Constitutional No insomnia 05/02/2017 Constitutional No weight loss 05/02/2017 Eyes No eye pain 017 Eyes No photophobia 04/12 Eyes No vision change Eyes No visual disturbance 05/02/2017 Ears/Nose/Throat/Neck No hearing loss 05/02/2017 Ears/Nose/Throat/Neck No nasal discharge 05/02/2017 Ears/Nose/Throat/Neck No sinus congestion 05/02/2017 Ears/Nose/Throat/Neck No sore throat 05/02/2017 Cardiovascular No arrhythmia 05/02/2017 Cardiovascular No chest pain/pressure 05/02/2017 Cardiovascular No edema 05/02/2017 Cardiovascular No exercise intolerance 05/02/2017 Cardiovascular No orthopnea 05/02/2017 Cardiovascular No palpitations 05/02/2017 Respiratory No asthma Respiratory No cough Respiratory No dyspnea 0 05/02/2017 Respiratory No pleuritic pain 05/02/2017 Respiratory No productive sputum 05/02/2017 Respiratory No wheezing 05/02/2017 Gastrointestinal No hemorrhoids 05/02/2017 Gastrointestinal No hepatitis 05/02/2017 Gastrointestinal No abdominal pain 05/02/2017 Gastrointestinal No constipation 05/02/2017 Gastrointestinal No diarrhea 05/02/2017 Gastrointestinal No gastroesophageal reflu x 05/02/2017 Gastrointestinal No melena 05/02/2017 Gastrointestinal No nausea 05/02/2017 Gastrointestinal No vomiting 05/02/2017 Genitourinary/Nephrology No dysuria 05/02/2017 Genitourinary/Nephrology No nocturia 05/02/2017 Genitourinary/Nephrology No urinary incontinence 05/02/2017 Musculoskeletal No muscle weakness 05/02/2017 Musculoskeletal No myalgias 05/02/2017 Musculoskeletal No stiffness 05/02/2017 Musculoskeletal No swelling 05/02/2017 Dermatologic No rash Dermatologic No scar Neurologic No dizziness 05/02/2017 Neurologic No headache 0 05/02/2017 Neurologic No neck pain 05/02/2017 Neurologic No syncope Psychiatric No anxiety 0 05/02/2017 Psychiatric No depression 05/02/2017 Endocrine No goiter 04/12 Endocrine No hyperglycemia 05/02/2017 Endocrine No hypoglycemia 05/02/2017 Hematologic/Lymphatic No abnormal ec chymoses 05/02/2017 Hematologic/Lymphatic No petechiae 05/02/2017 Hematologic/Lymphatic No abnormal bl eeding and bruising 05/02/2017 Hematologic/Lymphatic No anemia 05/02/2017 Hematologic/Lymphatic No lymph node enlargement/mass 05/02/2017 Allergy/Immunology No food allergy 05/02/2017 Dermatologic psoriasis 0 05/02/2017 Constitutional No night sweats 10/13/2014 Constitutional No fatigue 10/13/2014 Constitutional No fever 10/13/2014 Constitutional insomnia 10/13/2014 Constitutional No weight loss 10/13/2014 Eyes No eye pain 015 Eyes No photophobia 10/2014 Eyes No vision change Eyes No visual disturbance 10/13/2014 Ears/Nose/Throat/Neck No hearing loss 10/13/2014 Ears/Nose/Throat/Neck No nasal discharge 10/13/2014 Ears/Nose/Throat/Neck No sinus congestion 10/13/2014 Ears/Nose/Throat/Neck No sore throat 10/13/2014 Cardiovascular No arrhythmia 10/13/2014 Cardiovascular No chest pain/pressure 10/13/2014 Cardiovascular No edema 10/13/2014 Cardiovascular No exercise intolerance 10/13/2014 Cardiovascular No orthopnea 10/13/2014 Cardiovascular No palpitations 10/13/2014 Respiratory No asthma Respiratory No cough 10/2014 Respiratory No dyspnea 0 10/13/2014 Respiratory No pleuritic pain 10/13/2014 Respiratory No productive sputum 10/13/2014 Respiratory No wheezing 10/13/2014 Gastrointestinal No hemorrhoids 10/13/2014 Gastrointestinal No hepatitis 10/13/2014 Gastrointestinal No abdominal pain 10/13/2014 Gastrointestinal No constipation 10/13/2014 Gastrointestinal No diarrhea 10/13/2014 Gastrointestinal No gastroesophageal reflu x 10/13/2014 Gastrointestinal No melena 10/13/2014 Gastrointestinal No nausea 10/13/2014 Gastrointestinal No vomiting 10/13/2014 Genitourinary/Nephrology No dysuria 10/13/2014 Genitourinary/Nephrology No nocturia 10/13/2014 Genitourinary/Nephrology No urinary incontinence 10/13/2014 Musculoskeletal No muscle weakness 10/13/2014 Musculoskeletal No myalgias 10/13/2014 Musculoskeletal No stiffness 10/13/2014 Musculoskeletal No swelling 10/13/2014 Dermatologic No rash 10/2014 Dermatologic No scar 10/2014 Neurologic No dizziness 10/13/2014 Neurologic No headache 0 10/13/2014 Neurologic No neck pain 10/13/2014 Neurologic No syncope Psychiatric No anxiety 0 10/13/2014 Psychiatric No depression 10/13/2014 Endocrine No goiter /10/2014 Endocrine No hyperglycemia 10/13/2014 Endocrine No hypoglycemia 10/13/2014 Hematologic/Lymphatic No abnormal ec chymoses 10/13/2014 Hematologic/Lymphatic No petechiae 10/13/2014 Hematologic/Lymphatic No abnormal bl eeding and bruising 10/13/2014 Hematologic/Lymphatic No anemia 10/13/2014 Hematologic/Lymphatic No lymph node enlargement/mass 10/13/2014 Allergy/Immunology No food allergy 10/13/2014 Genitourinary/Nephrology vaginal dryness 10/13/2014 Musculoskeletal arthralgia(s) 09/17/2013 Musculoskeletal myalgias 09/17/2013 Genitourinary/Nephrology breast complaint 09/17/2013 Gastrointestinal No hemorrhoids 09/17/2013 Gastrointestinal No hepatitis 09/17/2013 Gastrointestinal No abdominal pain 09/17/2013 Gastrointestinal No constipation 09/17/2013 Gastrointestinal No diarrhea 09/17/2013 Gastrointestinal No gastroesophageal reflu x 09/17/2013 Gastrointestinal No melena 09/17/2013 Gastrointestinal No nausea 09/17/2013 Gastrointestinal No vomiting 09/17/2013 Respiratory No asthma Respiratory No cough 03/2014 Respiratory No dyspnea 0 09/17/2013 Respiratory No pleuritic pain 09/17/2013 Respiratory No productive sputum 09/17/2013 Respiratory No wheezing 09/17/2013 Cardiovascular No arrhythmia 09/17/2013 Cardiovascular No chest pain/pressure 09/17/2013 Cardiovascular No edema 09/17/2013 Cardiovascular No exercise intolerance 09/17/2013 Cardiovascular No orthopnea 09/17/2013 Cardiovascular No palpitations 09/17/2013 Ears/Nose/Throat/Neck No hearing loss 09/17/2013 Ears/Nose/Throat/Neck No nasal discharge 09/17/2013 Ears/Nose/Throat/Neck No sinus congestion 09/17/2013 Ears/Nose/Throat/Neck No sore throat 09/17/2013 Constitutional No night sweats 09/17/2013 Constitutional No fatigue 09/17/2013 Constitutional No fever 09/17/2013 Constitutional No insomnia 09/17/2013 Constitutional No weight loss 09/17/2013 Dermatologic No rash 03/2014 Dermatologic No scar 03/2014 Neurologic No dizziness 09/17/2013 Neurologic No headache 0 09/17/2013 Neurologic No neck pain 09/17/2013 Neurologic No syncope Psychiatric No anxiety 0 09/17/2013 Psychiatric No depression 09/17/2013 Endocrine No goiter 03/2014 Endocrine No hyperglycemia 09/17/2013 Endocrine No hypoglycemia 09/17/2013 Endocrine hyperlipidemia 09/17/2013 Physical Exam Exam Name System Name It em Name Status Result Effective Dates Notes Full Exam - General Constitutional general appearance Overall: well nourished 04/24/2019 None Full Exam - General Constitutional general appearance Overall: well developed 04/24/2019 None Full Exam - General Constitutional general appearance Overall: in no acute distress 04/24/2019 None Full Exam - General Neurologic mental status Overall: oriented 04/24/2019 None Full Exam - General Neurologic mental status Overall: alert 9 None Full Exam - General Psychiatric mood and affect Overall: normal mood and affect 04/24/2019 None Full Exam - General Ears/Nose/Throat otoscopic exam Overall: external auditory canals clear 04/24/2019 None Full Exam - General Ears/Nose/Throat otoscopic exam Overall: tympanic membranes clear 04/24/2019 None Full Exam - General Ears/Nose/Throat internal nose Overall: bilateral nasal cavities clear 04/24/2019 None Full Exam - General Ears/Nose/Throat oral cavity/pharynx/larynx Overall: oral mucosa clear 04/24/2019 None Full Exam - General Neck inspection of neck Overall: normal size 04/24/2019 None Full Exam - General Neck inspection of neck Overall: no masses 04/24/2019 None Full Exam - General Abdomen abdominal exam Overall: no masses 04/24/2019 None Full Exam - General Abdomen abdominal exam Overall: no tenderness 04/24/2019 None Full Exam - General Abdomen abdominal exam Overall: normal bowel sounds 04/24/2019 None Full Exam - General Abdomen abdominal exam Overall: soft 04/24/2019 None Full Exam - General Respiratory auscultation Overall: breath sounds clear bilater ally 04/24/2019 None Full Exam - General Cardiovascular auscultation of heart Overall: regular rate 04/24/2019 None Full Exam - General Cardiovascular auscultation of heart Overall: normal heart sounds 04/24/2019 None Full Exam - General Cardiovascular auscultation of heart Overall: no murmurs 04/24/2019 None Full Exam - General Cardiovascular extremities Overall: no clubbing 04/24/2019 None Full Exam - General Cardiovascular extremities Overall: No edema 04/24/2019 None Full Exam - General Cardiovascular extremities Overall: No cyanosis 04/24/2019 None Full Exam - General Musculoskeletal gait and station Overall: normal gait 04/24/2019 None Full Exam - General Musculoskeletal gait and station Overall: normal station 04/24/2019 None Full Exam - General Integument inspection of skin Location: face 04/24/2019 sunburn to face Full Exam - General Constitutional general appearance Overall: well nourished 05/02/2017 None Full Exam - General Constitutional general appearance Overall: well developed 05/02/2017 None Full Exam - General Constitutional general appearance Overall: in no acute distress 05/02/2017 None Full Exam - General Neurologic mental status Overall: alert 7 None Full Exam - General Neurologic mental status Overall: oriented 05/02/2017 None Full Exam - General Psychiatric mood and affect Overall: normal mood and affect 05/02/2017 None Full Exam - General Respiratory auscultation Overall: breath sounds clear bilater ally 05/02/2017 None Full Exam - General Cardiovascular auscultation of heart Overall: regular rate 05/02/2017 None Full Exam - General Cardiovascular auscultation of heart Overall: normal heart sounds 05/02/2017 None Full Exam - General Cardiovascular extremities Overall: no clubbing 05/02/2017 None Full Exam - General Cardiovascular extremities Overall: No edema 05/02/2017 None Full Exam - General Cardiovascular extremities Overall: No cyanosis 05/02/2017 None Full Exam - General Neck inspection of neck Overall: normal size 05/02/2017 None Full Exam - General Neck inspection of neck Overall: no masses 05/02/2017 None Full Exam - General Ears/Nose/Throat otoscopic exam Overall: external auditory canals clear 05/02/2017 None Full Exam - General Ears/Nose/Throat otoscopic exam Overall: tympanic membranes clear 05/02/2017 None Full Exam - General Ears/Nose/Throat internal nose Overall: bilateral nasal cavities clear 05/02/2017 None Full Exam - General Ears/Nose/Throat oral cavity/pharynx/larynx Overall: oral mucosa clear 05/02/2017 None Full Exam - General Integument inspection of skin Location: head 05/02/2017 scaling of scalp Full Exam - General Integument inspection of skin Location: left hand 05/02/2017 1/2cm erythemic papule Full Exam - General Abdomen abdominal exam Overall: no masses 05/02/2017 None Full Exam - General Abdomen abdominal exam Overall: no tenderness 05/02/2017 None Full Exam - General Abdomen abdominal exam Overall: soft 05/02/2017 None Full Exam - General Abdomen abdominal exam Overall: normal bowel sounds 05/02/2017 None Full Exam - General Constitutional general appearance Overall: well nourished 10/13/2014 None Full Exam - General Constitutional general appearance Overall: well developed 10/13/2014 None Full Exam - General Constitutional general appearance Overall: in no acute distress 10/13/2014 None Full Exam - General Neurologic mental status Overall: alert 5 None Full Exam - General Neurologic mental status Overall: oriented 10/13/2014 None Full Exam - General Psychiatric mood and affect Overall: normal mood and affect 10/13/2014 None Full Exam - General Respiratory auscultation Overall: breath sounds clear bilater ally 10/13/2014 None Full Exam - General Cardiovascular auscultation of heart Overall: regular rate 10/13/2014 None Full Exam - General Cardiovascular auscultation of heart Overall: normal heart sounds 10/13/2014 None Full Exam - General Cardiovascular auscultation of heart S3 (ventricular gallop): present 10/13/2014 None Full Exam - General Cardiovascular extremities Overall: no clubbing 10/13/2014 None Full Exam - General Cardiovascular extremities Overall: No cyanosis 10/13/2014 None Full Exam - General Cardiovascular extremities Overall: No edema 10/13/2014 None Full Exam - General Ears/Nose/Throat otoscopic exam Overall: external auditory canals clear 10/13/2014 None Full Exam - General Ears/Nose/Throat otoscopic exam Overall: tympanic membranes clear 10/13/2014 None Full Exam - General Ears/Nose/Throat internal nose Overall: bilateral nasal cavities clear 10/13/2014 None Full Exam - General Ears/Nose/Throat oral cavity/pharynx/larynx Overall: oral mucosa clear 10/13/2014 None Full Exam - General Neck inspection of neck Overall: normal size 10/13/2014 None Full Exam - General Neck inspection of neck Overall: no masses 10/13/2014 None Full Exam - General Abdomen abdominal exam Overall: no masses 10/13/2014 None Full Exam - General Abdomen abdominal exam Overall: no tenderness 10/13/2014 None Full Exam - General Abdomen abdominal exam Overall: normal bowel sounds 10/13/2014 None Full Exam - General Abdomen abdominal exam Overall: soft 10/13/2014 None Full Exam - General Musculoskeletal gait and station Overall: normal gait 10/13/2014 None Full Exam - General Musculoskeletal gait and station Overall: normal station 10/13/2014 None Full Exam - General Musculoskeletal spine, ribs and pelvis Overall: good posture 10/13/2014 None Full Exam - General Musculoskeletal spine, ribs and pelvis Overall: ribs benign 10/13/2014 None Full Exam - General Musculoskeletal spine, ribs and pelvis Overall: spine benign 10/13/2014 None Full Exam - General Integument inspection of skin Location: face 10/13/2014 erythema across cheeks with few telangie ctasias and papules Full Exam - General Constitutional general appearance Overall: well nourished 09/17/2013 None Full Exam - General Constitutional general appearance Overall: well developed 09/17/2013 None Full Exam - General Constitutional general appearance Overall: in no acute distress 09/17/2013 None Full Exam - General Neurologic mental status Overall: alert 4 None Full Exam - General Neurologic mental status Overall: oriented 09/17/2013 None Full Exam - General Psychiatric mood and affect Overall: normal mood and affect 09/17/2013 None Full Exam - General Respiratory auscultation Overall: breath sounds clear bilater ally 09/17/2013 None Full Exam - General Cardiovascular auscultation of heart Overall: regular rate 09/17/2013 None Full Exam - General Cardiovascular auscultation of heart Overall: normal heart sounds 09/17/2013 None Full Exam - General Cardiovascular auscultation of heart S3 (ventricular gallop): present 09/17/2013 None Full Exam - General Cardiovascular extremities Overall: no clubbing 09/17/2013 None Full Exam - General Cardiovascular extremities Overall: No edema 09/17/2013 None Full Exam - General Cardiovascular extremities Overall: No cyanosis 09/17/2013 None Full Exam - General Abdomen abdominal exam Overall: no masses 09/17/2013 None Full Exam - General Abdomen abdominal exam Overall: no tenderness 09/17/2013 None Full Exam - General Abdomen abdominal exam Overall: normal bowel sounds 09/17/2013 None Full Exam - General Abdomen abdominal exam Overall: soft 09/17/2013 None Full Exam - General Chest/Breast breast and axillae palpation Overall: breasts non- tender 09/17/2013 None Full Exam - General Chest/Breast breast and axillae palpation Overall: no masses 09/17/2013 None Full Exam - General Chest/Breast breast and axillae palpation Overall: axillae non- tender 09/17/2013 None Full Exam - General Chest/Breast breast and axillae palpation Overall: no nipple discharge 09/17/2013 None Full Exam - General Musculoskeletal gait and station Overall: normal gait 09/17/2013 None Full Exam - General Musculoskeletal gait and station Overall: normal station 09/17/2013 None Procedures Procedure Codes Date ROUTINE VENIPUNCTURE CPT-4: 55225 04/24/2019 ASSAY THYROID STIM H ORMONE CPT-4: 38404 04/24/2019 COMPREHEN METABOLIC PANEL CPT-4: 20350 04/24/2019 COMPLETE CBC W/AUTO DIFF WBC CPT-4: 57294 04/24/2019 LIPID PANEL CPT-4: 05809 04/24/2019 PPPS, subseq visit CPT- 4: G0439 04/24/2019 ROUTINE VENIPUNCTURE CPT-4: 63433 05/03/2017 ASSAY OF FREE THYROXINE CPT-4: 32512 05/03/2017 ASSAY THYROID STIM H ORMONE CPT-4: 65381 05/03/2017 COMPREHEN METABOLIC PANEL CPT-4: 81152 05/03/2017 COMPLETE CBC W/AUTO DIFF WBC CPT-4: 14112 05/03/2017 LIPID PANEL CPT-4: 03775 05/03/2017 VITAMIN D TOTAL (25 HYDROXY) CPT-4: 83486 05/03/2017 PPPS, subseq visit CPT- 4: G0439 05/02/2017 ROUTINE VENIPUNCTURE CPT-4: 92031 10/13/2014 ASSAY OF FREE THYROXINE CPT-4: 31457 10/13/2014 ASSAY THYROID STIM H ORMONE CPT-4: 67858 10/13/2014 COMPREHEN METABOLIC PANEL CPT-4: 43886 10/13/2014 COMPLETE CBC W/AUTO DIFF WBC CPT-4: 52484 10/13/2014 LIPID PANEL CPT-4: 29938 10/13/2014 ANTINUCLEAR ANTIBODIES CPT-4: 73989 10/13/2014 VITAMIN D TOTAL (25 HYDROXY) CPT-4: 40162 10/13/2014 INITIAL PREVENTIVE EXAM CPT-4: G0402 10/13/2014 ROUTINE VENIPUNCTURE CPT-4: 35275 09/17/2013 ASSAY OF FREE THYROXINE CPT-4: 44609 09/17/2013 ASSAY THYROID STIM H ORMONE CPT-4: 72036 09/17/2013 COMPREHEN METABOLIC PANEL CPT-4: 93193 09/17/2013 COMPLETE CBC W/AUTO DIFF WBC CPT-4: 26559 09/17/2013 LIPID PANEL CPT-4: 71932 09/17/2013 VITAMIN D TOTAL (25 HYDROXY) CPT-4: 53822 09/17/2013 A1C GLYCOSYLATED HEM OGLOBIN TEST CPT-4: 40511 09/17/2013 Vital Signs Date Vital 04/24/2019 Blood Pressure 1: 140/80 Code: 8480-6 Heart Rate 1: 64 bpm SpO2: 96% Temperature: 36.1 (C ) / 96.9 (F) Weight: 164 lbs 05/02/2017 Blood Pressure 1: 138/82 Code: 8480-6 BMI: 21.6 Code: 89421-5 Heart Rate 1: 72 bpm Height: 5'8" Respiratory Rate: 20 bpm SpO2: 97% Temperature: 36.1 (C ) / 97.0 (F) Weight: 144 lbs 10/13/2014 Blood Pressure 1: 152/86 Code: 8480-6 BMI: 23.7 Code: 01585-5 Heart Rate 1: 76 bpm Height: 5'8" Respiratory Rate: 20 bpm Temperature: 36.9 (C ) / 98.4 (F) Weight: 158 lbs 09/17/2013 Blood Pressure 1: 146/92 Code: 8480-6 BMI: 22.8 Code: 05657-8 Heart Rate 1: 84 bpm Height: 5'8" Respiratory Rate: 20 bpm Temperature: 37.3 (C ) / 99.1 (F) Weight: 152 lbs Functional Status No Functional Status data History of Present Illness Symptom Name Status Resu lt Effective Date Notes Lifestyle no history o f physical abuse 04/24/2019 None Lifestyle no history o f sexual abuse 04/24/2019 None Lifestyle no history o f verbal abuse 04/24/2019 None Lifestyle regular seat belt use 04/24/2019 None Lifestyle family suppo rtive 04/24/2019 None Lifestyle satisfactory work/longterm experience 04/24/2019 None Lifestyle abnormal sle ep patterns 04/24/2019 None Lifestyle normal amoun t of stress 04/24/2019 None Sexual Activity is mon ogamous 04/24/2019 None Nutrition and Exercise normal weight 04/24/2019 None Nutrition and Exercise balanced nutrition 04/24/2019 None Nutrition and Exercise moderate exercise 04/24/2019 None Health Guidance fall r isk 04/24/2019 None Health Guidance self-b reast exam 04/24/2019 None Health Guidance regula r mammogram 04/24/2019 None Health Guidance HIV pr ecautions 04/24/2019 None Health Guidance STD pr ecautions 04/24/2019 None Health Guidance hormon e replacement therapy 04/24/2019 None Health Guidance tobacc o, drugs and alcohol avoidance 04/24/2019 None Health Guidance nutrit ion counseling 04/24/2019 None Health Guidance regula r exercise 04/24/2019 None Health Guidance safety belt use 04/24/2019 None Health Guidance depres serge symptoms 04/24/2019 None Cardiovascular Risk Factors obesity 04/24/2019 None Breast/Statistics Professor Complaints urinary incontinence 04/24/2019 only with sneeze/hard cou gh Annual Checkup Pap Smear last normal performed unable to remember-Hysterectomy 05/02/2017 None Annual Checkup Lifestyle no history of physical abuse 05/02/2017 None Annual Checkup Lifestyle no history of sexual abuse 05/02/2017 None Annual Checkup Lifestyle no history of verbal abuse 05/02/2017 None Annual Checkup Lifestyle regular seatbelt use 05/02/2017 None Annual Checkup Lifestyle family supportive of relationship 05/02/2017 None Annual Checkup Lifestyle satisfactory school experience 05/02/2017 None Annual Checkup Lifestyle satisfactory peer relationships 05/02/2017 None Annual Checkup Lifestyle normal amount of stress 05/02/2017 None Annual Checkup Nutrition and Exercise normal weight 05/02/2017 None Annual Checkup Nutrition and Exercise balanced nutrition 05/02/2017 None Annual Checkup Nutrition and Exercise moderate exercise 05/02/2017 None Annual Checkup Reproductive System D evelopment normal development 05/02/2017 None Annual Checkup Sexual Activity is not sexually active 05/02/2017 None Annual Checkup Health Guidance self-breast exam 05/02/2017 None Annual Checkup Health Guidance tobacco, drugs and alcohol avoidance 05/02/2017 None Annual Checkup Health Guidance regular exercise 05/02/2017 None Annual Checkup Health Guidance safety belt use 05/02/2017 None Annual Checkup Health Guidance helmet use 05/02/2017 None Annual Checkup Health Guidance hearing loss prevention 05/02/2017 None Annual Checkup Health Guidance limiting UV/sun exposure 05/02/2017 None Annual Checkup Health Guidance suicide prevention 05/02/2017 None Annual Checkup Health Guidance depression symptoms 05/02/2017 None Annual Checkup Health Guidance STD precautions 05/02/2017 None Annual Checkup Health Guidance HIV precautions 05/02/2017 None Annual Checkup Menstrual History amenorrhea 05/02/2017 None Annual Checkup Menstrual History last menstrual period Fall 199310/13/2014 had total hysterectomy due to abnormal uterine bleeding with prolapse Annual Checkup Control none 10/13/2014 None Annual Checkup Sexual Activity is not sexually active 10/13/2014 None Annual Checkup Lifestyle no history of physical abuse 10/13/2014 None Annual Checkup Lifestyle no history of sexual abuse 10/13/2014 None Annual Checkup Lifestyle no history of verbal abuse 10/13/2014 None Annual Checkup Lifestyle regular seatbelt use 10/13/2014 None Annual Checkup Lifestyle family supportive of relationship 10/13/2014 None Annual Checkup Lifestyle normal amount of stress 10/13/2014 None Annual Checkup Nutrition and Exercise normal weight 10/13/2014 None Annual Checkup Nutrition and Exercise balanced nutrition 10/13/2014 None Annual Checkup Nutrition and Exercise regular diet 10/13/2014 None Annual Checkup Nutrition and Exercise moderate exercise 10/13/2014 None Annual Checkup Reproductive System D evelopment normal development 10/13/2014 None Annual Checkup Reproductive System D evelopment abnormal genitalia 10/13/2014 chronic irritation Annual Checkup Health Guidance self-breast exam 10/13/2014 None Annual Checkup Health Guidance HIV precautions 10/13/2014 None Annual Checkup Health Guidance STD precautions 10/13/2014 None Annual Checkup Health Guidance tobacco, drugs and alcohol avoidance 10/13/2014 None Annual Checkup Health Guidance regular exercise 10/13/2014 None Annual Checkup Health Guidance safety belt use 10/13/2014 None Annual Checkup Health Guidance hearing loss prevention 10/13/2014 None Annual Checkup Health Guidance limiting UV/sun exposure 10/13/2014 None Annual Checkup Health Guidance suicide prevention 10/13/2014 None Annual Checkup Health Guidance depression symptoms 10/13/2014 None breast complaint Location in the left breast 09/17/2013 None breast complaint Quality pain 09/17/2013 None breast complaint Onset and Resolution ongoing 09/17/2013 Had cat jumped on that area a couple days before [place] breast complaint Onset of Symptom 2 weeks ago 09/17/2013 None breast complaint Quality acute 09/17/2013 after cat jumped on chest /left breast hyperlipidemia Quality s table 09/17/2013 None Advance Directives No Advance Directive data Encounters Encounter Performer Loca tion Codes Date ([id number]) OFFICE/OUTPA TIENT VISIT EST Diagnosis: Encounter for general adult medical examination without abnormal findings[ICD10: Z00.00] Diagnosis: Vitamin D deficiency, unspecified[ICD10: E55.9] Diagnosis: Mixed hyperlipidemia[ICD10: E78.2] Aan Paula HAN DO [facility] CPT-4: 72669 05/03/2017 ([id number]) OFFICE/OUTPA TIENT VISIT NEW Diagnosis: Mastalgia[ICD9: 611.71] Diagnosis: HYPERLIPIDEMIA NEC/NOS[ICD9: 272.4] Diagnosis: Osteopenia[ICD9: 733.90] Ana Paula ODELL DO [facility] CPT-4: 47612 09/17/2013 Plan of Care Planned Activity Notes C odes Status Date Visit Diagnosis Plan: Encounter for gene ral adult medical examination without abnormal findings Discussion: Mediterranean diet Combinati on of cardio and weight bearing exercise Will get flu shot in fall Refuses shingrix Due for colonoscopy this year ICD-9 : V70.0 ICD-10 : Z00.00 04/24/2019 Visit Diagnosis Plan: Mixed hyperlipidemia Discussion: Check CMP, lipids ICD-9 : 272.4 ICD-10 : E78.2 04/24/2019 Appointment: Ana Paula Odell WPtel: [address] [place] [address] Annual Well Visit 04/24/2019 Appointment: Ana Paula Odell WPtel: [address] [place] [address] LAB 05/03/2017 Patient Education: Patient Medication Summary Completed 05/03/2017 Visit Diagnosis Plan: Psoriasis, unspecified Discussion: Will do trial of coconut oil to scalp twice weekly and see if improves Will also treat left hand lesion with psoriasis cream and see if resolves Otherwise will need left hand lesion frozen or removed if persists ICD-9 : 696.1 ICD-10 : L40.9 05/02/2017 Visit Diagnosis Plan: Encounter for gene ral adult medical examination without abnormal findings Discussion: Will return for fasting lab including Vitamin D 3-D Mammogram ordered ICD-9 : V70.0 ICD-10 : Z00.00 05/02/2017 Appointment: Ana Paula Odell WPtel: [address] [place], [place] [id number] Annual Well Visit 05/02/2017 Patient Education: Patient Medication Summary Completed 05/02/2017 Care Plan: MAMMOGRAM SCREENING LOINC : 67191-7 Pending 05/02/2017 Visit Plan: Check CBC, CMP, Lipids, TSH, Free T4, Vit D, GREGORY Discussed possibility of psoriasis vs rosacea causing ocular problems Mammo scheduled tomorrow Check Bone Density Rec Zostavax 10/13/2014 Appointment: Ana Paula [facility] [phone] [id number] 10/10/14 busy Annual Well Visit 10/13/2014 Patient Education: Patient Medication Summary Completed 10/13/2014 Care Plan: DXA BONE DENSITY VERT FX Ordered 10/13/2014 Patient Education: Patient Medication Summary Completed 09/18/2014 Care Plan: COMP SCREEN MAMMOGRAM ADD-ON LOINC : 49500-3 Ordered 09/18/2014 Visit Plan: Decrease caffeine intak e to 1-2cups max a day Vit E 400IU daily Proceed with Diagnostic Mammo with US Fasting lab drawn 09/17/2013 Appointment: Ana Paula Odell [facility]: [phone] [id number] NEW PATIENT 09/17/2013 Patient Education: Patient Medication Summary Completed 09/17/2013 Instructions Comment . Decrease caffeine intake to 1-2cups max a day Vit E 400IU daily Proceed with Diagnostic Mammo with US Fasting lab drawn . Check CBC, CMP, Li pids, TSH, Free T4, Vit D, GREGORY Discussed possibility of psoriasis vs rosacea causing ocular problems Mammo scheduled tomorrow Check Bone Density Rec Zostavax
--- OUTSIDE RECORDS SUMMARY | 2020-02-05 22:57 | XMS REPORT | CCD ---
Author Author Maria G Odell D.O. Organization ANA PAULA ODELL DO [facility] Address [address] [place] [address] Phone Care Team Providers Care Antiquer Name Role Phone PP Unavailable CCM Unavailable Summary Purpose Interface Exchange Insurance Providers Payer name Policy type / Coverage type Covered constitution party ID Effective Begin Date Effective End Date WPS MEDIC[place] B [place] Medicare [id number] 2014 Unknown Blue Cross Blue Shield Medicare [id number] 2014 Unknown Family history Father Diagnosis Age At Onset No Family Disease Entered N/A Mother Diagnosis Age At Onset No Family Disease Entered N/A Social History Social History Element Codes Description Effective Dates Marital status Unknown M arried 09/17/2013 Number of children Unknown 1 09/17/2013 Employment Unknown 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 09/17/[address]: 6679037 Former smoker 09/17/[address]: 950052 Currently drinks alcohol 09/17/2013 Allergies, Adverse Reactions, [...] Instructions alprazolam 0.5 mg ta blet RxNorm: 355062 1/2-1 Tablet(s) PO QH S as needed for sleep and 1/2 to 1 tablet daily as needed for severe stress 09/29/2015 05/01/2017 Inactive alprazolam 0.5 mg ta blet RxNorm: 081638 1/2-1 Tablet(s) PO QH S as needed for sleep and 1/2 to 1 tablet daily as needed for severe stress 09/07/2015 09/28/2015 Inactive Vitamin D2 1,000 uni t capsule RxNorm: 483109 3 Capsule(s) PO QD No Start Date Active vitamin E (dl, aceta te) 400 unit capsule RxNorm: 864832 1 Capsule(s) PO QD No Start Date Active Vitamin D3 1,000 uni t capsule RxNorm: 781133 1 Capsule(s) PO QD No Start Date 10/12/2014 Inactive alprazolam 0.5 mg ta blet RxNorm: 411438 1/2-1 Tablet(s) PO QH S as needed for sleep No Start Date 09/06/2015 Inactive Vitamin D3 1,000 uni t capsule RxNorm: 459902 2 Capsule(s) PO QD No Start Date 10/14/2014 Inactive Medication Administered No Medication Administered data Immunizations No Immunization data Assessments Condition Codes Effectiv e Dates Mixed hyperlipidemia ICD-10: E78.2 ICD-9: 272.4 05/03/2017 Encounter for general adult medical exam ination without abnormal findings ICD-10: Z00.00 ICD-9: V70.0 05/03/2017 Vitamin D deficiency, unspecified IC D-10: E55.9 ICD-9: 268.9 05/03/2017 Psoriasis, unspecified ICD-10: L40.9 ICD-9: 696.1 05/02/2017 HYPERLIPIDEMIA NEC/NOS ICD-9: 272.4 10/13/2014 Rosacea ICD-9: 695.3 10/2014 VITAMIN D DEFICIENCY ICD-9: 268.9 10/13/2014 ROUTINE MEDICAL EXAM ICD-9: V70.0 10/13/2014 Osteopenia ICD-9: 733.90 09/17/2013 Mastalgia ICD-9: 611.71 09/17/2013 Reason For Visit Reason For Visit Effective Dates Notes lab draw 05/03/2017 Annual Checkup 05/02/2017 Last Normal Mammogram 04/2016 Annual Checkup 10/13/2014 Welcome to Medicare ~generic 09/17/2013 Re-e stablishing Results Observation Observation Code Item Item Code Result Date COMPLETE BLOOD COUNT 3476822 WBC 5.2 10e9/L 04/24/2019 COMPLETE BLOOD COUNT 7484282 RBC 4.91 10e12/L 9 COMPLETE BLOOD COUNT 8030578 HEMOGLOBIN 15.1 g/dL 04/24/2019 COMPLETE BLOOD COUNT 2650124 HEMATOCRIT 44.5 % 04/24/2019 COMPLETE BLOOD COUNT 3456890 MCV 90.6 fL 04/24/2019 COMPLETE BLOOD COUNT 0015725 MCH 30.8 pg 04/24/2019 COMPLETE BLOOD COUNT 6883737 MCHC 33.9 g/dL 04/24/2019 COMPLETE BLOOD COUNT 7282181 PLATELET COUNT 187 10e9/L 04/24/2019 COMPLETE BLOOD COUNT 2248941 Mean Plt Volume 11.5 fL 04/24/2019 COMPLETE BLOOD COUNT 4150398 Neut Auto 68.2 % 04/24/2019 COMPLETE BLOOD COUNT 8552991 Lymph Auto 23.3 % 04/24/2019 COMPLETE BLOOD COUNT 1003156 Terry Auto 6.0 % 04/24/2019 COMPLETE BLOOD COUNT 0818518 RDW 13.7 % 04/24/2019 COMPLETE BLOOD COUNT 7998287 Eos Auto 2.3 % 04/24/2019 COMPLETE BLOOD COUNT 2449841 Baso Auto 0.2 % 04/24/2019 COMPLETE BLOOD COUNT 3704098 Neutrophil Abs 3.55 10e9/L 04/24/2019 COMPLETE BLOOD COUNT 1404741 Lymphocyte Abs 1.21 10e9/L 04/24/2019 COMPLETE BLOOD COUNT 3957047 Monocyte Abs 0.31 10e9/L 04/24/2019 COMPLETE BLOOD COUNT 7050386 Eosinophil Abs 0.12 10e9/L 04/24/2019 COMPLETE BLOOD COUNT 7642855 RDW-SD 44.4 fL 04/24/2019 COMPLETE BLOOD COUNT 1426022 Basophil Abs 0.01 10e9/L 04/24/2019 COMPREHENSIVE METABOLIC 41924 AST 17 U/L 05/03/2017 COMPREHENSIVE METABOLIC 46720 ALT 17 U/L 05/03/2017 COMPREHENSIVE METABOLIC 25848 BUN 15 mg/dL 05/03/2017 COMPREHENSIVE METABOLIC 92104 ALBUMIN 4.2 g/dL 05/03/2017 COMPREHENSIVE METABOLIC 09422 CHLORIDE 106 mmol/L 05/03/2017 COMPREHENSIVE METABOLIC 74611 Bili Total 0.7 mg/dL 05/03/2017 COMPREHENSIVE METABOLIC 97723 ALK PHOS 48 U/L 05/03/2017 COMPREHENSIVE METABOLIC 70332 SODIUM 142 mmol/L 05/03/2017 COMPREHENSIVE METABOLIC 11896 CREATININE 0.94 mg/dL 05/03/2017 COMPREHENSIVE METABOLIC 13994 CALCIUM 9.0 mg/dL 05/03/2017 COMPREHENSIVE METABOLIC 11285 POTASSIUM 4.1 mmol/L 05/03/2017 COMPREHENSIVE METABOLIC 75352 Total Protein 6.3 g/dL 05/03/2017 COMPREHENSIVE METABOLIC 98369 Glucose 94 mg/dL 05/03/2017 COMPREHENSIVE METABOLIC 33531 Bicarbonate 29 mmol/L 05/03/2017 COMPREHENSIVE METABOLIC 52887 AGAP 7 mmol/L 05/03/2017 COMPLETE BLOOD COUNT 9653604 WBC 4.6 10e9/L 05/03/2017 COMPLETE BLOOD COUNT 5132259 RBC 4.89 10e12/L 7 COMPLETE BLOOD COUNT 3791433 HEMOGLOBIN 15.1 g/dL 05/03/2017 COMPLETE BLOOD COUNT 6351128 HEMATOCRIT 45.6 % 05/03/2017 COMPLETE BLOOD COUNT 6199424 MCV 93.3 fL 05/03/2017 COMPLETE BLOOD COUNT 2616607 MCH 30.9 pg 05/03/2017 COMPLETE BLOOD COUNT 0090760 MCHC 33.1 g/dL 05/03/2017 COMPLETE BLOOD COUNT 8728259 PLATELET COUNT 175 10e9/L 05/03/2017 COMPLETE BLOOD COUNT 2513154 Mean Plt Volume 11.3 fL 05/03/2017 COMPLETE BLOOD COUNT 5531429 Neut Auto 59.1 % 05/03/2017 COMPLETE BLOOD COUNT 2810880 Lymph Auto 30.7 % 05/03/2017 COMPLETE BLOOD COUNT 2118965 Terry Auto 6.1 % 05/03/2017 COMPLETE BLOOD COUNT 2374399 RDW 13.8 % 05/03/2017 COMPLETE BLOOD COUNT 4112941 Eos Auto 3.7 % 05/03/2017 COMPLETE BLOOD COUNT 3900389 Baso Auto 0.4 % 05/03/2017 COMPLETE BLOOD COUNT 4658476 Neutrophil Abs 2.72 10e9/L 05/03/2017 COMPLETE BLOOD COUNT 0028719 Lymphocyte Abs 1.41 10e9/L 05/03/2017 COMPLETE BLOOD COUNT 7149398 Monocyte Abs 0.28 10e9/L 05/03/2017 COMPLETE BLOOD COUNT 1865423 Eosinophil Abs 0.17 10e9/L 05/03/2017 COMPLETE BLOOD COUNT 2161091 RDW-SD 46.1 fL 05/03/2017 COMPLETE BLOOD COUNT 8861451 Basophil Abs 0.02 10e9/L 05/03/2017 LIPID GROUP 21397 Choles terol 207 mg/dL 05/03/2017 LIPID GROUP 62786 Trigly ceride 85 mg/dL 05/03/2017 LIPID GROUP 75272 HDL CH OLESTEROL 58 mg/dL 05/03/2017 LIPID GROUP 79209 Chol/H DL Ratio 3.57 ratio 05/03/2017 LIPID GROUP 86970 NON-HD L Chol 149 mg/dL 05/03/2017 LIPID GROUP 78058 LDL Ch olesterol 132 mg/dL 05/03/2017 FREE T4 88317 T4 Free 1.05 ng/dL 05/03/2017 VITAMIN D TOTAL (25 HYDROXY) 09964 Vitamin D 25 OH 44 ng/mL 7 GFR CALC 5208775 GFR Non Afr Amr 59 mL/min 05/03/2017 GFR CALC 5701639 GFR Afr Amr >60 mL/min 05/03/2017 THYROID STIMULATING HORMONE 94425 TSH 1.427 uIU/mL 7 ANTINUCLEAR ANTIBODY SCREEN 17228 GREGORY SCR <1:80 10/14/2014 THYROID STIMULATING HORMONE 14317 TSH 1.340 uIU/ML 5 VITAMIN D TOTAL (25 HYDROXY) 26839 VIT D TOTL 34 NG/ML 10/13/2014 COMPREHENSIVE METABOLIC 79637 AST 18 U/L 10/13/2014 COMPREHENSIVE METABOLIC 53859 ALT 15 IU/L 10/13/2014 COMPREHENSIVE METABOLIC 14201 BUN 15 MG/DL 10/13/2014 COMPREHENSIVE METABOLIC 81470 ALBUMIN 4.8 GM/DL 10/13/2014 COMPREHENSIVE METABOLIC 87798 CHLORIDE 105 MMOL/L 10/13/2014 COMPREHENSIVE METABOLIC 35873 BILI TOT 0.8 MG/DL 10/13/2014 COMPREHENSIVE METABOLIC 50593 ALK PHOS 61 U/L 10/13/2014 COMPREHENSIVE METABOLIC 50651 SODIUM 139 MMOL/L 10/13/2014 COMPREHENSIVE METABOLIC 44585 CREATININE 0.77 MG/DL 10/13/2014 COMPREHENSIVE METABOLIC 02592 CALCIUM 9.6 MG/DL 10/13/2014 COMPREHENSIVE METABOLIC 69249 POTASSIUM 4.1 MMOL/L 10/13/2014 COMPREHENSIVE METABOLIC 92521 PROT TOT 6.9 GM/DL 10/13/2014 COMPREHENSIVE METABOLIC 73591 Glucose 107 MG/DL 10/13/2014 COMPREHENSIVE METABOLIC 84823 BICARB 28 MMOL/L 10/13/2014 COMPREHENSIVE METABOLIC 13267 ANION GAP 6 MEQ/L 10/13/2014 GFR CALC 4314326 GFR AA >60 ML/MIN 10/13/2014 GFR CALC 8102935 GFR NON -AA >60 ML/MIN 10/13/2014 FREE T4 47015 FREE T4 1.12 NG/DL 10/13/2014 LIPID GROUP [address] 60 MG/DL 10/13/2014 LIPID GROUP 46523 TRIG 86 MG/DL 10/13/2014 LIPID GROUP 29381 TEST L DL 149 MG/DL 10/13/2014 LIPID GROUP 76441 CHOL 226 MG/DL 10/13/2014 LIPID GROUP 85526 RCHOL/ HDL 3.77 RATIO 10/13/2014 LIPID GROUP 24161 NON-HD L CH 166 MG/DL 10/13/2014 COMPLETE BLOOD COUNT 9634372 WBC 5.4 10e9/L 10/13/2014 COMPLETE BLOOD COUNT 8086358 RBC 4.96 10e12/L 5 COMPLETE BLOOD COUNT 1348532 HGB 15.4 g/dL 10/13/2014 COMPLETE BLOOD COUNT 1275259 HCT DET 44.2 % 10/13/2014 COMPLETE BLOOD COUNT 6960064 MCV 89.1 fL 10/13/2014 COMPLETE BLOOD COUNT 3542225 MCH 31.0 pg 10/13/2014 COMPLETE BLOOD COUNT 1131111 MCHC 34.8 g/dL 10/13/2014 COMPLETE BLOOD COUNT 0004384 PLT 175 10e9/L 10/13/2014 COMPLETE BLOOD COUNT 2708969 MPV 11.7 fL 10/13/2014 COMPLETE BLOOD COUNT 0056114 EDMAR % 70.4 % 10/13/2014 COMPLETE BLOOD COUNT 4994474 LY % 23.3 % 10/13/2014 COMPLETE BLOOD COUNT 9407091 MON % 5.0 % 10/13/2014 COMPLETE BLOOD COUNT 4033227 EOS % 1.1 % 10/13/2014 COMPLETE BLOOD COUNT 5731435 BASO % 0.2 % 10/13/2014 COMPLETE BLOOD COUNT 3110553 RDW 13.4 % 10/13/2014 COMPLETE BLOOD COUNT 2503353 ABS EDMAR 3.80 10e9/L 10/13/2014 COMPLETE BLOOD COUNT 3960504 ABS LYMPH 1.26 10e9/L 10/13/2014 COMPLETE BLOOD COUNT 4580994 ABS MONO 0.27 10e9/L 10/13/2014 COMPLETE BLOOD COUNT 8960525 ABS EOS 0.06 10e9/L 10/13/2014 COMPLETE BLOOD COUNT 6251277 ABS BASO 0.01 10e9/L 10/13/2014 COMPLETE BLOOD COUNT 0044405 RDW-SD 43.2 fL 10/13/2014 GFR CALC 6179381 GFR AA >60 ML/MIN 09/19/2013 GFR CALC 6187272 GFR NON -AA >60 ML/MIN 09/19/2013 THYROID STIMULATING HORMONE 67941 TSH 0.982 uIU/ML 4 LIPID GROUP [address] 58 MG/DL 09/17/2013 LIPID GROUP 74146 TRIG 65 MG/DL 09/17/2013 LIPID GROUP 08860 TEST L DL 138 MG/DL 09/17/2013 LIPID GROUP 78625 CHOL 209 MG/DL 09/17/2013 LIPID GROUP 98103 RCHOL/ HDL 3.60 RATIO 09/17/2013 VITAMIN D TOTAL (25 HYDROXY) 22981 VIT D TOTL 32 NG/ML 09/17/2013 COMPLETE BLOOD COUNT 4588048 WBC 7.2 10e9/L 09/17/2013 COMPLETE BLOOD COUNT 3444374 RBC 4.82 10e12/L 4 COMPLETE BLOOD COUNT 8130641 HGB 15.1 g/dL 09/17/2013 COMPLETE BLOOD COUNT 0982040 HCT DET 43.8 % 09/17/2013 COMPLETE BLOOD COUNT 6537166 MCV 90.9 fL 09/17/2013 COMPLETE BLOOD COUNT 9183546 MCH 31.3 pg 09/17/2013 COMPLETE BLOOD COUNT 2492727 MCHC 34.5 g/dL 09/17/2013 COMPLETE BLOOD COUNT 9360477 PLT 202 10e9/L 09/17/2013 COMPLETE BLOOD COUNT 9003574 MPV 11.3 fL 09/17/2013 COMPLETE BLOOD COUNT 8446830 EDMAR % 80.3 % 09/17/2013 COMPLETE BLOOD COUNT 1014341 LY % 14.2 % 09/17/2013 COMPLETE BLOOD COUNT 9696154 MON % 5.0 % 09/17/2013 COMPLETE BLOOD COUNT 4984947 EOS % 0.4 % 09/17/2013 COMPLETE BLOOD COUNT 0688733 BASO % 0.1 % 09/17/2013 COMPLETE BLOOD COUNT 9906346 RDW 13.1 % 09/17/2013 COMPLETE BLOOD COUNT 5787495 ABS EDMAR 5.78 10e9/L 09/17/2013 COMPLETE BLOOD COUNT 8304024 ABS LYMPH 1.02 10e9/L 09/17/2013 COMPLETE BLOOD COUNT 9530650 ABS MONO 0.36 10e9/L 09/17/2013 COMPLETE BLOOD COUNT 9940133 ABS EOS 0.03 10e9/L 09/17/2013 COMPLETE BLOOD COUNT 1105178 ABS BASO 0.01 10e9/L 09/17/2013 COMPLETE BLOOD COUNT 5163594 RDW-SD 43.0 fL 09/17/2013 COMPREHENSIVE METABOLIC 47148 AST 16 U/L 09/17/2013 COMPREHENSIVE METABOLIC 85291 ALT 15 IU/L 09/17/2013 COMPREHENSIVE METABOLIC 00931 BUN 14 MG/DL 09/17/2013 COMPREHENSIVE METABOLIC 51375 ALBUMIN 4.7 GM/DL 09/17/2013 COMPREHENSIVE METABOLIC 74509 CHLORIDE 104 MMOL/L 09/17/2013 COMPREHENSIVE METABOLIC 95783 BILI TOT 0.7 MG/DL 09/17/2013 COMPREHENSIVE METABOLIC 19662 ALK PHOS 64 U/L 09/17/2013 COMPREHENSIVE METABOLIC 70703 SODIUM 140 MMOL/L 09/17/2013 COMPREHENSIVE METABOLIC 57599 CREATININE 0.77 MG/DL 09/17/2013 COMPREHENSIVE METABOLIC 76032 CALCIUM 9.7 MG/DL 09/17/2013 COMPREHENSIVE METABOLIC 63099 POTASSIUM 3.8 MMOL/L 09/17/2013 COMPREHENSIVE METABOLIC 69155 PROT TOT 6.8 GM/DL 09/17/2013 COMPREHENSIVE METABOLIC 46187 Glucose 114 MG/DL 09/17/2013 COMPREHENSIVE METABOLIC 02996 BICARB 26 MMOL/L 09/17/2013 COMPREHENSIVE METABOLIC 20134 ANION GAP 10 MEQ/L 09/17/2013 FREE T4 88318 FREE T4 1.24 NG/DL 09/17/2013 Review of Systems System Result Effective Dates Constitutional No night sweats 05/02/2017 Constitutional No [...] Psychiatric No depression 10/13/2014 Endocrine No goiter 10/2014 Endocrine No hyperglycemia 10/13/2014 Endocrine No hypoglycemia [...] Procedures Procedure Codes Date ROUTINE VENIPUNCTURE CPT-4: 32094 05/03/2017 ASSAY OF FREE THYROXINE CPT-4: 23824 05/03/2017 ASSAY THYROID STIM H ORMONE CPT-4: 01295 05/03/2017 COMPREHEN METABOLIC PANEL CPT-4: 76330 05/03/2017 COMPLETE CBC W/AUTO DIFF WBC CPT-4: 77009 05/03/2017 LIPID PANEL CPT-4: 25186 05/03/2017 VITAMIN D TOTAL (25 HYDROXY) CPT-4: 04931 05/03/2017 PPPS, subseq visit CPT- 4: G0439 05/02/2017 ROUTINE VENIPUNCTURE CPT-4: 78837 10/13/2014 ASSAY OF FREE THYROXINE CPT-4: 43317 10/13/2014 ASSAY THYROID STIM H ORMONE CPT-4: 71684 10/13/2014 COMPREHEN METABOLIC PANEL CPT-4: 88352 10/13/2014 COMPLETE CBC W/AUTO DIFF WBC CPT-4: 86509 10/13/2014 LIPID PANEL CPT-4: 48287 10/13/2014 ANTINUCLEAR ANTIBODIES CPT-4: 50093 10/13/2014 VITAMIN D TOTAL (25 HYDROXY) CPT-4: 61799 10/13/2014 INITIAL PREVENTIVE EXAM CPT-4: G0402 10/13/2014 ROUTINE VENIPUNCTURE CPT-4: 93805 09/17/2013 ASSAY OF FREE THYROXINE CPT-4: 69178 09/17/2013 ASSAY THYROID STIM H ORMONE CPT-4: 75584 09/17/2013 COMPREHEN METABOLIC PANEL CPT-4: 95900 09/17/2013 COMPLETE CBC W/AUTO DIFF WBC CPT-4: 80645 09/17/2013 LIPID PANEL CPT-4: 80042 09/17/2013 VITAMIN D TOTAL (25 HYDROXY) CPT-4: 95517 09/17/2013 A1C GLYCOSYLATED HEM OGLOBIN TEST CPT-4: 17619 09/17/2013 Vital Signs Date Vital 05/02/2017 Blood Pressure 1: 138/82 Code: 8480-6 BMI: 21.6 Code: 42245-7 Heart Rate 1: 72 bpm Height: 5'8" Respiratory Rate: 20 bpm SpO2: 97% Temperature: 36.1 (C ) / 97.0 (F) Weight: 144 lbs 10/13/2014 Blood Pressure 1: 152/86 Code: 8480-6 BMI: 23.7 Code: 68739-5 Heart Rate 1: 76 bpm Height: 5'8" Respiratory Rate: 20 bpm Temperature: 36.9 (C ) / 98.4 (F) Weight: 158 lbs 09/17/2013 Blood Pressure 1: 146/92 Code: 8480-6 BMI: 22.8 Code: 58245-1 Heart Rate 1: 84 bpm Height: 5'8" Respiratory Rate: 20 bpm Temperature: 37.3 (C ) / 99.1 (F) Weight: 152 lbs Functional Status No Functional Status data History of Present Illness Symptom Name Status Resu lt Effective Date Notes Annual Checkup Pap Smear last normal performed [...] Annual Checkup Menstrual History last menstrual period fall 199310/13/2014 had total hysterectomy due to abnormal [...] on that area a couple days before [place] breast complaint Onset of Symptom 2 weeks ago 09/17/2013 None breast complaint Quality acute 09/17/2013 after cat jumped on chest /left breast hyperlipidemia Quality s table 09/17/2013 None Advance Directives No Advance Directive data Encounters Encounter Performer Loca tion Codes Date (09897) OFFICE/OUTPA TIENT VISIT EST Diagnosis: Encounter for general adult medical examination without abnormal findings[ICD10: Z00.00] Diagnosis: Vitamin D deficiency, unspecified[ICD10: E55.9] Diagnosis: Mixed hyperlipidemia[ICD10: E78.2] Ana Paula HAN DO [facility] CPT-4: 39288 05/03/2017 ([id number]) OFFICE/OUTPA TIENT VISIT NEW Diagnosis: Mastalgia[ICD9: 611.71] Diagnosis: HYPERLIPIDEMIA NEC/NOS[ICD9: 272.4] Diagnosis: Osteopenia[ICD9: 733.90] Ana Paula ODELL DO [facility] CPT-4: 81310 09/17/2013 Plan of Care Planned Activity Notes C odes Status Date Appointment: Ana Paula Odell WPtel: [address] [place], [place] [address] 05/03/2017 Patient Education: Patient Medication Summary [...] L40.9 05/02/2017 Visit Diagnosis Plan: Encounter for [facility] adult medical examination without abnormal findings Discussion: Will return for fasting lab including Vitamin D 3-D Mammogram ordered ICD-9 : V70.0 ICD-10 : Z00.00 05/02/2017 Appointment: Ana Paula Odell WPtel: [address] [place] [address] Annual Well Visit 05/02/2017 Patient Education: Patient Medication Summary Completed 05/02/2017 Care Plan: MAMMOGRAM SCREENING LOINC : 08580-9 Pending 05/02/2017 Visit Plan: Check CBC, CMP, Lipids, TSH, Free T4, Vit D, GREGORY Discussed possibility of psoriasis vs rosacea causing ocular problems Mammo scheduled tomorrow Check Bone Density Rec Zostavax 10/13/2014 Appointment: Ana Paula Odell WPtel: [address] [place], [place] [phone] 10/10/14 busy Annual Well Visit 10/13/2014 Patient Education: Patient Medication Summary Completed 10/13/2014 Care Plan: DXA BONE DENSITY VERT FX Ordered 10/13/2014 Patient Education: Patient Medication Summary Completed 09/18/2014 Care Plan: COMP SCREEN MAMMOGRAM ADD-ON LOINC : 31216-8 Ordered 09/18/2014 Visit Plan: Decrease caffeine intak e to 1-2cups max a day Vit E 400IU daily Proceed with Diagnostic Mammo with US Fasting lab drawn 09/17/2013 App[facility]ment: [facility] [phone] [id number] [facility] 09/17/2013 Patient Education: Patient Medication [...]
--- OUTSIDE RECORDS SUMMARY | 2020-02-05 22:57 | XMS REPORT | Continuity of Care Document ---
Author Organization Unknown Address Unknown Phone Unavailable Allergies There is no data. Medications There is no data. Problems Date Dx Coded Attending Type Code Diagnosis Diagnosed By 08/22/2014 ANA PAULA BOND DO S Ot 611.71 08/22/2014 MAXIMO BOND DOQUELINE S Ot 793.89 08/22/2014 JUSTINE AYALA ANTIQUE REPAIRER Ot 611.72 08/22/2014 JUSTINE AYALA ANTIQUE REPAIRER Ot 793.80 11/05/2014 JUSTINE AYALA ANTIQUE REPAIRER Ot 793.80 07/03/2015 JUSTINE AYALA ANTIQUE REPAIRER Ot 611.72 07/03/2015 JUSTINE AYALA ANTIQUE REPAIRER Ot 793.80 05/02/2016 JUSTINE AYALA ANTIQUE REPAIRER Ot 793.80 UNSPEC ABNORMAL MAMMOGRAM 05/03/2016 ORENDER DO, ANA PAULA S Ot R92.8 OTH ABN AND INCONCLUSIVE FINDINGS ON DX 05/04/2016 JANNDER DO, ANA PAULA S Ot R92.2 INCONCLUSIVE MAMMOGRAM 05/04/2016 JANNDER DO, ANA PAULA S Ot R92.8 OTH ABN AND INCONCLUSIVE FINDINGS ON DX 05/06/2016 JUSTINE AYALA ANTIQUE REPAIRER Ot 793.80 UNSPEC ABNORMAL MAMMOGRAM 05/06/2016 ORENDER DO, ANA PAULA S Ot R92.2 INCONCLUSIVE MAMMOGRAM 05/06/2016 ORENDER DO, ANA PAULA S Ot R92.8 OTH ABN AND INCONCLUSIVE FINDINGS ON DX 05/27/2016 ORENDER DO, ANA PAULA S Ot R92.2 INCONCLUSIVE MAMMOGRAM 05/27/2016 ORENDER DO, ANA PAULA S Ot R92.8 OTH ABN AND INCONCLUSIVE FINDINGS ON DX 06/01/2016 ORENDER DO, ANA PAULA S Ot R92.2 INCONCLUSIVE MAMMOGRAM 06/01/2016 ORENDER DO, ANA PAULA S Ot R92.8 OTH ABN AND INCONCLUSIVE FINDINGS ON DX 05/03/2017 ANA PAULA BOND DO Ot Z12.31 ENCNTR SCREEN MAMMOGRAM FOR MALIGNANT NE 06/02/2017 ANA PAULA BOND DO Ot Z12.31 ENCNTR SCREEN MAMMOGRAM FOR MALIGNANT NE Procedures There is no data. Results There is no data. Encounters ACCT No. Visit Date/Time Discharge Status Pt. Type Provider Facility Loc./Unit Complaint 04/07/10 05/01/2019 14:33:02 05/01/2019 23:59 :59 CLS Outpatient [id number] 05/09/2017 09:24:00 017 23:59:59 CLS Outpatient ANA PAULA BOND DO [facility] RAD SCREENING, HX O F LT RETROAREOLAR MASS [id number] 05/02/2016 13:19:00 016 23:59:59 CLS Outpatient ANA PAULA BOND DO [facility] RAD FOLLOW UP [id number] 10/14/2014 10:52:00 015 23:59:59 CLS Outpatient JUSTINE AYALA [facility] RAD SCREENING [id number] 03/24/2014 10:31:00 014 23:59:59 CLS Outpatient JUSTINE AYALA P [facility] RAD [id number] 09/26/2013 12:48:00 014 23:59:59 CLS Outpatient ANA PAULA BOND DO [facility] RAD
--- OUTSIDE RECORDS SUMMARY | 2020-02-05 22:57 | XMS REPORT | CCD ---
Author Author Maria G Odell D.O. Organization ANA PAULA ODELL DO [facility] Address [address] [place] [phone] Phone Care Team Providers Care Turbine Operator Name Role Phone PP Unavailable CCM Unavailable Summary Purpose Interface Exchange Insurance Providers Payer name Policy type / Coverage type Covered libertarian ID Effective Begin Date Effective End Date WPS MEDICARE [place] B [place] Medicare [id number] 2014 Unknown Blue Cross Blue Shield Medicare [id number] 2014 Unknown Family history Father Diagnosis Age At Onset No Family Disease Entered N/A Mother Diagnosis Age At Onset No Family Disease Entered N/A Social History Social History Element Codes Description Effective Dates Marital status Unknown M arried 09/17/2013 Number of children Unknown 1 09/17/2013 Employment Unknown 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 09/17/[address]: 6810342 Former smoker 09/17/[address]: 509779 Currently drinks alcohol 09/17/2013 Allergies, Adverse Reactions, [...] Instructions alprazolam 0.5 mg ta blet RxNorm: 387551 1/2-1 Tablet(s) PO QH S as needed for sleep and 1/2 to 1 tablet daily as needed for severe stress 09/29/2015 05/01/2017 Inactive alprazolam 0.5 mg ta blet RxNorm: 816587 1/2-1 Tablet(s) PO QH S as needed for sleep and 1/2 to 1 tablet daily as needed for severe stress 09/07/2015 09/28/2015 Inactive Vitamin D2 1,000 uni t capsule RxNorm: 706119 3 Capsule(s) PO QD No Start Date Active vitamin E (dl, aceta te) 400 unit capsule RxNorm: 602397 1 Capsule(s) PO QD No Start Date Active Vitamin D3 1,000 uni t capsule RxNorm: 981095 1 Capsule(s) PO QD No Start Date 10/12/2014 Inactive alprazolam 0.5 mg ta blet RxNorm: 671903 1/2-1 Tablet(s) PO QH S as needed for sleep No Start Date 09/06/2015 Inactive Vitamin D3 1,000 uni t capsule RxNorm: 564704 2 Capsule(s) PO QD No Start Date [...] Item Code Result Date THYROID STIMULATING HORMONE 51560 TSH 1.020 uIU/mL 9 LIPID GROUP 48733 Choles terol 226 mg/dL 04/24/2019 LIPID GROUP 81542 Trigly ceride 86 mg/dL 04/24/2019 LIPID GROUP 39225 HDL CH OLESTEROL 55 mg/dL 04/24/2019 LIPID GROUP 85663 Chol/H DL Ratio 4.11 ratio 04/24/2019 LIPID GROUP 41662 NON-HD L Chol 171 mg/dL 04/24/2019 LIPID GROUP 59046 LDL Ch olesterol 154 mg/dL 04/24/2019 GFR CALC 6214223 GFR Non Afr Amr >60 mL/min 04/24/2019 GFR CALC 8924123 GFR Afr Amr >60 mL/min 04/24/2019 COMPLETE BLOOD COUNT 2743044 WBC 5.2 10e9/L 04/24/2019 COMPLETE BLOOD COUNT 0100033 RBC 4.91 10e12/L 9 COMPLETE BLOOD COUNT 0529505 HEMOGLOBIN 15.1 g/dL 04/24/2019 COMPLETE BLOOD COUNT 6003804 HEMATOCRIT 44.5 % 04/24/2019 COMPLETE BLOOD COUNT 9797179 MCV 90.6 fL 04/24/2019 COMPLETE BLOOD COUNT 2641998 MCH 30.8 pg 04/24/2019 COMPLETE BLOOD COUNT 2987199 MCHC 33.9 g/dL 04/24/2019 COMPLETE BLOOD COUNT 0766965 PLATELET COUNT 187 10e9/L 04/24/2019 COMPLETE BLOOD COUNT 9204446 Mean Plt Volume 11.5 fL 04/24/2019 COMPLETE BLOOD COUNT 0797111 Neut Auto 68.2 % 04/24/2019 COMPLETE BLOOD COUNT 5904834 Lymph Auto 23.3 % 04/24/[address]LO[address] [facility] Auto 6.0 % 04/24/2019 COMPLETE BLOOD COUNT 4794786 RDW 13.7 % 04/24/2019 COMPLETE BLOOD COUNT 2248817 Eos Auto 2.3 % 04/24/2019 COMPLETE BLOOD COUNT 6708625 Baso Auto 0.2 % 04/24/2019 COMPLETE BLOOD COUNT 4656723 Neutrophil Abs 3.55 10e9/L 04/24/2019 COMPLETE BLOOD COUNT 6910023 Lymphocyte Abs 1.21 10e9/L 04/24/2019 COMPLETE BLOOD COUNT 3840566 Monocyte Abs 0.31 10e9/L 04/24/2019 COMPLETE BLOOD COUNT 0524257 Eosinophil Abs 0.12 10e9/L 04/24/2019 COMPLETE BLOOD COUNT 4692515 RDW-SD 44.4 fL 04/24/2019 COMPLETE BLOOD COUNT 9077595 Basophil Abs 0.01 10e9/L 04/24/2019 COMPREHENSIVE METABOLIC 83814 AST 19 U/L 04/24/2019 COMPREHENSIVE METABOLIC 93579 ALT 17 U/L 04/24/2019 COMPREHENSIVE METABOLIC 69835 BUN 17 mg/dL 04/24/2019 COMPREHENSIVE METABOLIC 52658 ALBUMIN 4.3 g/dL 04/24/2019 COMPREHENSIVE METABOLIC 93381 CHLORIDE 104 mmol/L 04/24/2019 COMPREHENSIVE METABOLIC 04273 Bili Total 0.7 mg/dL 04/24/2019 COMPREHENSIVE METABOLIC 74747 ALK PHOS 58 U/L 04/24/2019 COMPREHENSIVE METABOLIC 18723 SODIUM 143 mmol/L 04/24/2019 COMPREHENSIVE METABOLIC 13861 CREATININE 0.85 mg/dL 04/24/2019 COMPREHENSIVE METABOLIC 85550 CALCIUM 9.3 mg/dL 04/24/2019 COMPREHENSIVE METABOLIC 54561 POTASSIUM 4.1 mmol/L 04/24/2019 COMPREHENSIVE METABOLIC 80147 Total Protein 6.3 g/dL 04/24/2019 COMPREHENSIVE METABOLIC 20916 Glucose 99 mg/dL 04/24/2019 COMPREHENSIVE METABOLIC 40771 Bicarbonate 29 mmol/L 04/24/2019 COMPREHENSIVE METABOLIC 40775 AGAP 10 mmol/L 04/24/2019 COMPREHENSIVE METABOLIC 46591 AST 17 U/L 05/03/2017 COMPREHENSIVE METABOLIC 11502 ALT 17 U/L 05/03/2017 COMPREHENSIVE METABOLIC 30475 BUN 15 mg/dL 05/03/2017 COMPREHENSIVE METABOLIC 15630 ALBUMIN 4.2 g/dL 05/03/2017 COMPREHENSIVE METABOLIC 45757 CHLORIDE 106 mmol/L 05/03/2017 COMPREHENSIVE METABOLIC 80316 Bili Total 0.7 mg/dL 05/03/2017 COMPREHENSIVE METABOLIC 22076 ALK PHOS 48 U/L 05/03/2017 COMPREHENSIVE METABOLIC 81673 SODIUM 142 mmol/L 05/03/2017 COMPREHENSIVE METABOLIC 29611 CREATININE 0.94 mg/dL 05/03/2017 COMPREHENSIVE METABOLIC 89780 CALCIUM 9.0 mg/dL 05/03/2017 COMPREHENSIVE METABOLIC 00173 POTASSIUM 4.1 mmol/L 05/03/2017 COMPREHENSIVE METABOLIC 07458 Total Protein 6.3 g/dL 05/03/2017 COMPREHENSIVE METABOLIC 36549 Glucose 94 mg/dL 05/03/2017 COMPREHENSIVE METABOLIC 64928 Bicarbonate 29 mmol/L 05/03/2017 COMPREHENSIVE METABOLIC 77348 AGAP 7 mmol/L 05/03/2017 COMPLETE BLOOD COUNT 5337841 WBC 4.6 10e9/L 05/03/2017 COMPLETE BLOOD COUNT 2570415 RBC 4.89 10e12/L 7 COMPLETE BLOOD COUNT 8481432 HEMOGLOBIN 15.1 g/dL 05/03/2017 COMPLETE BLOOD COUNT 4311530 HEMATOCRIT 45.6 % 05/03/2017 COMPLETE BLOOD COUNT 3573302 MCV 93.3 fL 05/03/2017 COMPLETE BLOOD COUNT 3110608 MCH 30.9 pg 05/03/2017 COMPLETE BLOOD COUNT 3346904 MCHC 33.1 g/dL 05/03/2017 COMPLETE BLOOD COUNT 6708167 PLATELET COUNT 175 10e9/L 05/03/2017 COMPLETE BLOOD COUNT 3674177 Mean Plt Volume 11.3 fL 05/03/2017 COMPLETE BLOOD COUNT 1209806 Neut Auto 59.1 % 05/03/2017 COMPLETE BLOOD COUNT 5803838 Lymph Auto 30.7 % 05/03/2017 [address]LO[address] [facility] Auto 6.1 % 05/03/2017 COMPLETE BLOOD COUNT 2887715 RDW 13.8 % 05/03/2017 COMPLETE BLOOD COUNT 0076992 Eos Auto 3.7 % 05/03/2017 COMPLETE BLOOD COUNT 9381078 Baso Auto 0.4 % 05/03/2017 COMPLETE BLOOD COUNT 9741438 Neutrophil Abs 2.72 10e9/L 05/03/2017 COMPLETE BLOOD COUNT 7723614 Lymphocyte Abs 1.41 10e9/L 05/03/2017 COMPLETE BLOOD COUNT 3591256 Monocyte Abs 0.28 10e9/L 05/03/2017 COMPLETE BLOOD COUNT 0658461 Eosinophil Abs 0.17 10e9/L 05/03/2017 COMPLETE BLOOD COUNT 4958725 RDW-SD 46.1 fL 05/03/2017 COMPLETE BLOOD COUNT 6459139 Basophil Abs 0.02 10e9/L 05/03/2017 LIPID GROUP 56283 Choles terol 207 mg/dL 05/03/2017 LIPID GROUP 59650 Trigly ceride 85 mg/dL 05/03/2017 LIPID GROUP 62723 HDL CH OLESTEROL 58 mg/dL 05/03/2017 LIPID GROUP 58609 Chol/H DL Ratio 3.57 ratio 05/03/2017 LIPID GROUP 36802 NON-HD L Chol 149 mg/dL 05/03/2017 LIPID GROUP 11485 LDL Ch olesterol 132 mg/dL 05/03/2017 FREE T4 00399 T4 Free 1.05 ng/dL 05/03/2017 VITAMIN D TOTAL (25 HYDROXY) 86950 Vitamin D 25 OH 44 ng/mL 7 GFR CALC 1807389 GFR Non Afr Amr 59 mL/min 05/03/2017 GFR CALC 8085543 GFR Afr Amr >60 mL/min 05/03/2017 THYROID STIMULATING HORMONE 34220 TSH 1.427 uIU/mL 7 ANTINUCLEAR ANTIBODY SCREEN 05608 GREGORY SCR <1:80 10/14/2014 THYROID STIMULATING HORMONE 28345 TSH 1.340 uIU/ML 5 VITAMIN D TOTAL (25 HYDROXY) 30170 VIT D TOTL 34 NG/ML 10/13/2014 COMPREHENSIVE METABOLIC 05678 AST 18 U/L 10/13/2014 COMPREHENSIVE METABOLIC 78426 ALT 15 IU/L 10/13/2014 COMPREHENSIVE METABOLIC 60755 BUN 15 MG/DL 10/13/2014 COMPREHENSIVE METABOLIC 49146 ALBUMIN 4.8 GM/DL 10/13/2014 COMPREHENSIVE METABOLIC 62013 CHLORIDE 105 MMOL/L 10/13/2014 COMPREHENSIVE METABOLIC 96366 BILI TOT 0.8 MG/DL 10/13/2014 COMPREHENSIVE METABOLIC 50963 ALK PHOS 61 U/L 10/13/2014 COMPREHENSIVE METABOLIC 10622 SODIUM 139 MMOL/L 10/13/2014 COMPREHENSIVE METABOLIC 77286 CREATININE 0.77 MG/DL 10/13/2014 COMPREHENSIVE METABOLIC 02181 CALCIUM 9.6 MG/DL 10/13/2014 COMPREHENSIVE METABOLIC 66326 POTASSIUM 4.1 MMOL/L 10/13/2014 COMPREHENSIVE METABOLIC 85276 PROT TOT 6.9 GM/DL 10/13/2014 COMPREHENSIVE METABOLIC 33475 Glucose 107 MG/DL 10/13/2014 COMPREHENSIVE METABOLIC 23138 BICARB 28 MMOL/L 10/13/2014 COMPREHENSIVE METABOLIC 15442 ANION GAP 6 MEQ/L 10/13/2014 GFR CALC 1080828 GFR AA >60 ML/MIN 10/13/2014 GFR CALC 5885663 GFR NON -AA >60 ML/MIN 10/13/2014 FREE T4 15613 FREE T4 1.12 NG/DL 10/13/2014 LIPID GROUP [address] 60 MG/DL 10/13/2014 LIPID GROUP 36230 TRIG 86 MG/DL 10/13/2014 LIPID GROUP 46553 TEST L DL 149 MG/DL 10/13/2014 LIPID GROUP 92047 CHOL 226 MG/DL 10/13/2014 LIPID GROUP 97425 RCHOL/ HDL 3.77 RATIO 10/13/2014 LIPID GROUP 65314 NON-HD L CH 166 MG/DL 10/13/2014 COMPLETE BLOOD COUNT 6192860 WBC 5.4 10e9/L 10/13/2014 COMPLETE BLOOD COUNT 9805011 RBC 4.96 10e12/L 5 COMPLETE BLOOD COUNT 5583828 HGB 15.4 g/dL 10/13/2014 COMPLETE BLOOD COUNT 9922031 HCT DET 44.2 % 10/13/2014 COMPLETE BLOOD COUNT 8731942 MCV 89.1 fL 10/13/2014 COMPLETE BLOOD COUNT 8175225 MCH 31.0 pg 10/13/2014 COMPLETE BLOOD COUNT 7495399 MCHC 34.8 g/dL 10/13/2014 COMPLETE BLOOD COUNT 2434310 PLT 175 10e9/L 10/13/2014 COMPLETE BLOOD COUNT 0359935 MPV 11.7 fL 10/13/2014 COMPLETE BLOOD COUNT 2322233 EDMAR % 70.4 % 10/13/2014 COMPLETE BLOOD COUNT 8388815 LY % 23.3 % 10/13/2014 COMPLETE BLOOD COUNT 4480403 MON % 5.0 % 10/13/2014 COMPLETE BLOOD COUNT 4454728 EOS % 1.1 % 10/13/2014 COMPLETE BLOOD COUNT 1364326 BASO % 0.2 % 10/13/2014 COMPLETE BLOOD COUNT 8241134 RDW 13.4 % 10/13/2014 COMPLETE BLOOD COUNT 1119119 ABS EDMAR 3.80 10e9/L 10/13/2014 COMPLETE BLOOD COUNT 4758086 ABS LYMPH 1.26 10e9/L 10/13/2014 COMPLETE BLOOD COUNT 9013428 ABS MONO 0.27 10e9/L 10/13/2014 COMPLETE BLOOD COUNT 3582596 ABS EOS 0.06 10e9/L 10/13/2014 COMPLETE BLOOD COUNT 8153498 ABS BASO 0.01 10e9/L 10/13/2014 COMPLETE BLOOD COUNT 1128087 RDW-SD 43.2 fL 10/13/2014 GFR CALC 2342267 GFR AA >60 ML/MIN 09/19/2013 GFR CALC 7583334 GFR NON -AA >60 ML/MIN 09/19/2013 THYROID STIMULATING HORMONE 59289 TSH 0.982 uIU/ML 4 LIPID GROUP [address] 58 MG/DL 09/17/2013 LIPID GROUP 14924 TRIG 65 MG/DL 09/17/2013 LIPID GROUP 77001 TEST L DL 138 MG/DL 09/17/2013 LIPID GROUP 10579 CHOL 209 MG/DL 09/17/2013 LIPID GROUP 88387 RCHOL/ HDL 3.60 RATIO 09/17/2013 VITAMIN D TOTAL (25 HYDROXY) 43170 VIT D TOTL 32 NG/ML 09/17/2013 COMPLETE BLOOD COUNT 8509814 WBC 7.2 10e9/L 09/17/2013 COMPLETE BLOOD COUNT 0226078 RBC 4.82 10e12/L 4 COMPLETE BLOOD COUNT 9191315 HGB 15.1 g/dL 09/17/2013 COMPLETE BLOOD COUNT 9568061 HCT DET 43.8 % 09/17/2013 COMPLETE BLOOD COUNT 6269396 MCV 90.9 fL 09/17/2013 COMPLETE BLOOD COUNT 1340520 MCH 31.3 pg 09/17/2013 COMPLETE BLOOD COUNT 3640080 MCHC 34.5 g/dL 09/17/2013 COMPLETE BLOOD COUNT 3366497 PLT 202 10e9/L 09/17/2013 COMPLETE BLOOD COUNT 0347168 MPV 11.3 fL 09/17/2013 COMPLETE BLOOD COUNT 6495947 EDMAR % 80.3 % 09/17/2013 COMPLETE BLOOD COUNT 3960458 LY % 14.2 % 09/17/2013 COMPLETE BLOOD COUNT 3560885 MON % 5.0 % 09/17/2013 COMPLETE BLOOD COUNT 8208366 EOS % 0.4 % 09/17/2013 COMPLETE BLOOD COUNT 8606937 BASO % 0.1 % 09/17/2013 COMPLETE BLOOD COUNT 1998041 RDW 13.1 % 09/17/2013 COMPLETE BLOOD COUNT 3250409 ABS EDMAR 5.78 10e9/L 09/17/2013 COMPLETE BLOOD COUNT 3730274 ABS LYMPH 1.02 10e9/L 09/17/2013 COMPLETE BLOOD COUNT 6346881 ABS MONO 0.36 10e9/L 09/17/2013 COMPLETE BLOOD COUNT 6218457 ABS EOS 0.03 10e9/L 09/17/2013 COMPLETE BLOOD COUNT 1158040 ABS BASO 0.01 10e9/L 09/17/2013 COMPLETE BLOOD COUNT 2644671 RDW-SD 43.0 fL 09/17/2013 COMPREHENSIVE METABOLIC 98925 AST 16 U/L 09/17/2013 COMPREHENSIVE METABOLIC 52858 ALT 15 IU/L 09/17/2013 COMPREHENSIVE METABOLIC 64712 BUN 14 MG/DL 09/17/2013 COMPREHENSIVE METABOLIC 62749 ALBUMIN 4.7 GM/DL 09/17/2013 COMPREHENSIVE METABOLIC 11658 CHLORIDE 104 MMOL/L 09/17/2013 COMPREHENSIVE METABOLIC 28517 BILI TOT 0.7 MG/DL 09/17/2013 COMPREHENSIVE METABOLIC 55702 ALK PHOS 64 U/L 09/17/2013 COMPREHENSIVE METABOLIC 74690 SODIUM 140 MMOL/L 09/17/2013 COMPREHENSIVE METABOLIC 24274 CREATININE 0.77 MG/DL 09/17/2013 COMPREHENSIVE METABOLIC 00273 CALCIUM 9.7 MG/DL 09/17/2013 COMPREHENSIVE METABOLIC 35765 POTASSIUM 3.8 MMOL/L 09/17/2013 COMPREHENSIVE METABOLIC 61142 PROT TOT 6.8 GM/DL 09/17/2013 COMPREHENSIVE METABOLIC 98184 Glucose 114 MG/DL 09/17/2013 COMPREHENSIVE METABOLIC 19646 BICARB 26 MMOL/L 09/17/2013 COMPREHENSIVE METABOLIC 69738 ANION GAP 10 MEQ/L 09/17/2013 FREE T4 35477 FREE T4 1.24 NG/DL 09/17/2013 Review of [...] Procedures Procedure Codes Date ROUTINE VENIPUNCTURE CPT-4: 44985 04/24/2019 ASSAY THYROID STIM H ORMONE CPT-4: 72409 04/24/2019 COMPREHEN METABOLIC PANEL CPT-4: 06764 04/24/2019 COMPLETE CBC W/AUTO DIFF WBC CPT-4: 87721 04/24/2019 LIPID PANEL CPT-4: 58658 04/24/2019 PPPS, subseq visit CPT- 4: G0439 04/24/2019 ROUTINE VENIPUNCTURE CPT-4: 84996 05/03/2017 ASSAY OF FREE THYROXINE CPT-4: 86852 05/03/2017 ASSAY THYROID STIM H ORMONE CPT-4: 69049 05/03/2017 COMPREHEN METABOLIC PANEL CPT-4: 07042 05/03/2017 COMPLETE CBC W/AUTO DIFF WBC CPT-4: 01784 05/03/2017 LIPID PANEL CPT-4: 07767 05/03/2017 VITAMIN D TOTAL (25 HYDROXY) CPT-4: 75888 05/03/2017 PPPS, subseq visit CPT- 4: G0439 05/02/2017 ROUTINE VENIPUNCTURE CPT-4: 08805 10/13/2014 ASSAY OF FREE THYROXINE CPT-4: 65553 10/13/2014 ASSAY THYROID STIM H ORMONE CPT-4: 82912 10/13/2014 COMPREHEN METABOLIC PANEL CPT-4: 70685 10/13/2014 COMPLETE CBC W/AUTO DIFF WBC CPT-4: 54313 10/13/2014 LIPID PANEL CPT-4: 26443 10/13/2014 ANTINUCLEAR ANTIBODIES CPT-4: 73632 10/13/2014 VITAMIN D TOTAL (25 HYDROXY) CPT-4: 52832 10/13/2014 INITIAL PREVENTIVE EXAM CPT-4: G0402 10/13/2014 ROUTINE VENIPUNCTURE CPT-4: 09013 09/17/2013 ASSAY OF FREE THYROXINE CPT-4: 04360 09/17/2013 ASSAY THYROID STIM H ORMONE CPT-4: 46919 09/17/2013 COMPREHEN METABOLIC PANEL CPT-4: 97143 09/17/2013 COMPLETE CBC W/AUTO DIFF WBC CPT-4: 32792 09/17/2013 LIPID PANEL CPT-4: 74874 09/17/2013 VITAMIN D TOTAL (25 HYDROXY) CPT-4: 75680 09/17/2013 A1C GLYCOSYLATED HEM OGLOBIN TEST CPT-4: 58166 09/17/2013 Vital Signs Date Vital 04/24/2019 Blood Pressure 1: 140/80 Code: 8480-6 Heart Rate 1: 64 bpm SpO2: 96% Temperature: 36.1 (C ) / 96.9 (F) Weight: 164 lbs 05/02/2017 Blood Pressure 1: 138/82 Code: 8480-6 BMI: 21.6 Code: 08165-9 Heart Rate 1: 72 bpm Height: 5'8" Respiratory Rate: 20 bpm SpO2: 97% Temperature: 36.1 (C ) / 97.0 (F) Weight: 144 lbs 10/13/2014 Blood Pressure 1: 152/86 Code: 8480-6 BMI: 23.7 Code: 98123-6 Heart Rate 1: 76 bpm Height: 5'8" Respiratory Rate: 20 bpm Temperature: 36.9 (C ) / 98.4 (F) Weight: 158 lbs 09/17/2013 Blood Pressure 1: 146/92 Code: 8480-6 BMI: 22.8 Code: 14004-8 Heart Rate 1: 84 bpm Height: 5'8" [...] family suppo rtive 04/24/2019 None Lifestyle satisfactory work/halfway experience 04/24/2019 None Lifestyle abnormal sle ep [...] None Cardiovascular Risk Factors obesity 04/24/2019 None 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 Complaints urinary incontinence 04/24/2019 only with sneeze/hard [...] on that area a couple days before [place] breast complaint Onset of Symptom 2 weeks ago 09/17/2013 None breast complaint Quality acute 09/17/2013 after cat jumped on chest /left breast hyperlipidemia Quality s table 09/17/2013 None Advance Directives No Advance Directive data Encounters Encounter Performer Loca tion Codes Date ([id number]) OFFICE/OUTPA TIENT VISIT EST Diagnosis: Encounter for general adult medical examination without abnormal findings[ICD10: Z00.00] Diagnosis: Vitamin D deficiency, unspecified[ICD10: E55.9] Diagnosis: Mixed hyperlipidemia[ICD10: E78.2] Ana Paula HAN DO [facility] CPT-4: 06836 05/03/2017 ([id number]) OFFICE/OUTPA TIENT VISIT NEW Diagnosis: Mastalgia[ICD9: 611.71] Diagnosis: HYPERLIPIDEMIA NEC/NOS[ICD9: 272.4] Diagnosis: Osteopenia[ICD9: 733.90] Ana Paula ODELL DO [facility] CPT-4: 45869 09/17/2013 Plan of Care Planned Activity Notes [...] E78.2 04/24/2019 Appointment: Ana Paula Odell WPtel: [address] [place] [address] Annual Well Visit 04/24/2019 Appointment: Ana Paula Odell WPtel: [address] [place] [address] LAB 05/03/2017 Patient Education: Patient Medication Summary [...] Z00.00 05/02/2017 Appointment: Ana Paula Odell WPtel: [address] [place], [place] [address] Annual Well Visit 05/02/2017 Patient Education: Patient Medication Summary Completed 05/02/2017 Care Plan: MAMMOGRAM SCREENING LOINC : 31724-5 Pending 05/02/2017 Visit Plan: Check CBC, CMP, Lipids, TSH, Free T4, Vit D, GREGORY Discussed possibility of psoriasis vs rosacea causing ocular problems Mammo scheduled tomorrow Check Bone Density Rec Zostavax 10/13/2014 [facility]ment: [facility] [phone] [facility] [facility]/10/14 busy Annual Well Visit 10/13/2014 Patient Education: Patient Medication Summary Completed 10/13/2014 Care Plan: DXA BONE DENSITY VERT FX Ordered 10/13/2014 Patient Education: Patient Medication Summary Completed 09/18/2014 Care Plan: COMP SCREEN MAMMOGRAM ADD-ON LOINC : 22650-2 Ordered 09/18/2014 Visit Plan: Decrease caffeine intak e to 1-2cups max a day Vit E 400IU daily Proceed with Diagnostic Mammo with US Fasting lab drawn 09/17/2013 Appointment: [facility] Paula [facility] [phone] [facility] NEW PATIENT 09/17/2013 Patient Education: Patient Medication [...]
[2020-02-05 23:15] VITALS: BP 154/75
[2020-02-06] VITALS: BP 138/66
[2020-02-06 03:15] LABS: BASOPHILS % (AUTO) 0 % (0-10); EOSINOPHILS # (AUTO) 0.1 10^3/uL (0.0-0.3); EOSINOPHILS % (AUTO) 2 % (0-10); HEMATOCRIT 39 % (35-52); HEMOGLOBIN 13.4 G/DL (11.5-16.0); LYMPHOCYTES # (AUTO) 1.5 X 10^3 (1.0-4.0); LYMPHOCYTES % (AUTO) 27 % (12-44); MEAN CORPUSCULAR HEMOGLOBIN 31 PG (25-34); MEAN CORPUSCULAR HGB CONC 34 G/DL (32-36); MEAN CORPUSCULAR VOLUME 89 FL (80-99); MONOCYTES # (AUTO) 0.4 X 10^3 (0.0-1.0); MONOCYTES % (AUTO) 7 % (0-12); NEUTROPHILS # (AUTO) 3.7 X 10^3 (1.8-7.8); NEUTROPHILS % (AUTO) 64 % (42-75); PLATELET COUNT 171 10^3/uL (130-400); RED CELL DISTRIBUTION WIDTH 13.6 % (10.0-14.5); WHITE BLOOD COUNT 5.8 10^3/uL (4.3-11.0)
[2020-02-06 03:30] LABS: ALBUMIN 3.7 GM/DL (3.2-4.5)
[2020-02-06 03:31] LABS: CHLORIDE 111 MMOL/L (98-107); POTASSIUM 3.6 MMOL/L (3.6-5.0); SODIUM 144 MMOL/L (135-145)
[2020-02-06 03:32] LABS: CALCIUM 8.7 MG/DL (8.5-10.1)
[2020-02-06 03:33] LABS: GLUCOSE 110 MG/DL (70-105); TOTAL PROTEIN 5.8 GM/DL (6.4-8.2)
[2020-02-06 03:34] LABS: CARBON DIOXIDE 23 MMOL/L (21-32)
[2020-02-06 03:35] LABS: BILIRUBIN,TOTAL 0.4 MG/DL (0.1-1.0)
[2020-02-06 03:36] LABS: ALKALINE PHOSPHATASE 56 U/L (40-136)
[2020-02-06 03:37] LABS: CREATININE SERUM 0.78 MG/DL (0.60-1.30); GFR ESTIMATED > 60
[2020-02-06 03:38] LABS: BUN/CREATININE RATIO 17
[2020-02-06 03:39] LABS: ALANINE AMINOTRANSFERASE 24 U/L (0-55)
[2020-02-06 04:00] VITALS: BP 160/69
[2020-02-06 04:39] LABS: TRIGLYCERIDES 90 MG/DL (<150); VLDL CHOLESTEROL 18 MG/DL (5-40)
[2020-02-06 04:44] LABS: CHOLESTEROL 199 MG/DL (< 200)
[2020-02-06 04:45] LABS: HDL CHOLESTEROL 48 MG/DL (40-60)
[2020-02-06] MEDS: inSUlin ASPART (NovoLOG) 1 UNIT/0.01 ML (CHARGE PER UNIT) SC SCH ×2 (05:48→10:58)
[2020-02-06 08:00] VITALS: BP 149/89
[2020-02-06] MEDS ORDERED: CLOPIDOGREL 75 MG (PLAVIX) TABLET PO SCH (09:00)
[2020-02-06] MEDS ORDERED: meTOproloL SUCCINATE 50 MG (TOPROL XL) TAB PO SCH (09:00)
[2020-02-06] MEDS ORDERED: PEG15DRO9 OP (11:02)
[2020-02-06] MEDS ORDERED: FAMO-208 PO (11:02)
[2020-02-06] MEDS ORDERED: [UNRECOGNIZED DRUG - CODE] PO (11:02)
[2020-02-06] MEDS ORDERED: IBUP200C11 PO (11:02)
--- NOTE | 2020-02-06 11:03 | NUR ---
SPOKE WITH THE PT TO COMPLETE THE MED REC PT DENIES TAKING ANY PRESCRIPTION MEDICATIONS OTC MEDS: ADVIL PRN SUDAFED PE PRN VISINE DRY EYE DROPS PRN PEPCID COMPLETE HS
[2020-02-06 12:00] VITALS: BP 178/80
[2020-02-06] MEDS ORDERED: ASPI-586 PO (12:35)
[2020-02-06] MEDS ORDERED: ATOR10TA66 PO (12:35)
[2020-02-06] MEDS ORDERED: CLOP75TA28 PO (12:35)
[2020-02-06] MEDS ORDERED: METO50TA7 PO (12:35)
--- NOTE | 2020-02-06 12:50 | Short Stay Summary ---
Discharge Summary Hospital Course Was the Problem List Reviewed?: Yes Problems/Dx: (1) TIA (transient ischemic attack) Status: Acute (2) Uncontrolled hypertension Status: Acute (3) Hyperlipemia Status: Chronic Final Diagnosis: See DC/Assessment Hospital Course Date of Admission: February 05, 2020 at 20:05 Admission Diagnosis : Family Physician/Provider: Nancy Odell DO Date of Discharge: 02/06/20 Discharge Diagnosis: [ ] Hospital Course: This is a 69 year old female who presented to the emergency room after several hours of right sided weakness and difficulty speaking. She was felt to be having an acute TIA vs Stroke. She was past the window for TPA. Her initial CT scan of the head was negative so a CTA of the head and neck were ordered which showed no blockages. She was loaded with plavix and it was decided to admit her to cardiac stepdown for further evaluation. Her blood pressure was elevated during her hospital stay so metoprolol was started. She also had an elevated LDL of 144 so statin therapy will be initiated on discharge. By the following hospital day, her symptoms had almost completely resolved except for some fine dexterity in her right hand that she noticed as difficulty texting with her index finger and some mild slurred speech with only certain words. Her echocardiogram has been completed and she will followup with me in the office in 1 week. We will consider MRI of the brain at that time. She is instructed to return to the hospital for any worsening of symptoms. Labs and Pending Lab Test: Laboratory Tests 02/05/20 18:19: White Blood Count 6.9, Red Blood Count 5.00, Hemoglobin 15.1, Hematocrit 44, Mean Corpuscular Volume 87, Mean Corpuscular Hemoglobin 30, Mean Corpuscular Hemoglobin Concent 35, Red Cell Distribution Width 13.7, Platelet Count 186, Mean Platelet Volume 11.0H, Neutrophils (%) (Auto) 73, Lymphocytes (%) (Auto) 22, Monocytes (%) (Auto) 4, Eosinophils (%) (Auto) 1, Basophils (%) (Auto) 0, Neutrophils # (Auto) 5.1, Lymphocytes # (Auto) 1.5, Monocytes # (Auto) 0.3, Eosinophils # (Auto) 0.1, Basophils # (Auto) 0.0, Prothrombin Time 14.0, INR Comment 1.0, Activated Partial Thromboplast Time 28, D-Dimer 0.28, Sodium Level 142, Potassium Level 3.8, Chloride Level 108H, Carbon Dioxide Level 23, Anion Gap 11, Blood Urea Nitrogen 14, Creatinine 0.94, Estimat Glomerular Filtration Rate 59, BUN/Creatinine Ratio 15, Glucose Level 192H, Calcium Level 9.4, Corrected Calcium 9.1, Total Bilirubin 0.6, Aspartate Amino Transf (AST/SGOT) 26, Alanine Aminotransferase (ALT/SGPT) 31, Alkaline Phosphatase 68, Troponin I < 0.028, Total Protein 7.0, Albumin 4.4 02/05/20 19:19: Glucometer 179H 02/05/20 21:09: Urine Color YELLOW, Urine Clarity CLEAR, Urine pH 7.0, Urine Specific [place] <=1.005, Urine Protein NEGATIVE, Urine Glucose (UA) NEGATIVE, Urine Ketones NEGATIVE, Urine Nitrite NEGATIVE, Urine Bilirubin NEGATIVE, Urine Urobilinogen 0.2, Urine Leukocyte Esterase NEGATIVE, Urine RBC (Auto) NEGATIVE, Urine RBC NONE, Urine WBC NONE, Urine Squamous Epithelial Cells RARE, Urine Crystals NONE, Urine Bacteria NEGATIVE, Urine Casts NONE, Urine Mucus NEGATIVE, Urine Culture Indicated NO 02/06/20 02:54: White Blood Count 5.8, Red Blood Count 4.40, Hemoglobin 13.4, Hematocrit 39, Mean Corpuscular Volume 89, Mean Corpuscular Hemoglobin 31, Mean Corpuscular Hemoglobin Concent 34, Red Cell Distribution Width 13.6, Platelet Count 171, Mean Platelet Volume 11.0H, Neutrophils (%) (Auto) 64, Lymphocytes (%) (Auto) 27, Monocytes (%) (Auto) 7, Eosinophils (%) (Auto) 2, Basophils (%) (Auto) 0, Neutrophils # (Auto) 3.7, Lymphocytes # (Auto) 1.5, Monocytes # (Auto) 0.4, Eosinophils # (Auto) 0.1, Basophils # (Auto) 0.0, Sodium Level 144, Potassium Level 3.6, Chloride Level 111H, Carbon Dioxide Level 23, Anion Gap 10, Blood Urea Nitrogen 13, Creatinine 0.78, Estimat Glomerular Filtration Rate > 60, BUN/Creatinine Ratio 17, Glucose Level 110H, Calcium Level 8.7, Corrected Calcium 8.9, Total Bilirubin 0.4, Aspartate Amino Transf (AST/SGOT) 19, Alanine Aminotransferase (ALT/SGPT) 24, Alkaline Phosphatase 56, Troponin I < 0.028, Total Protein 5.8L, Albumin 3.7, Triglycerides Level 90, Cholesterol Level 199, LDL Cholesterol Direct 144H, VLDL Cholesterol 18, HDL Cholesterol 48 02/06/20 10:10: Glucometer 114H Home Meds Active Aspir 81 (Aspirin) 81 Mg Tablet.dr 81 Mg PO DAILY Atorvastatin Calcium 10 Mg Tablet 10 Mg PO HS Metoprolol Succinate 50 Mg Tab.er.24h 50 Mg PO DAILY Clopidogrel (Clopidogrel Bisulfate) 75 Mg Tablet 75 Mg PO DAILY Reported Visine Dry Eye Relief Drop (Peg 400/Hypromellose/Glycerin) 15 Ml Drops 2 Drops OP PRN PRN Acid Plug Cutter Complete Tab Chew (Famotidine/Ca Carb/Mag Hydrox) 1 Each Tab.chew 1-2 Each PO HS Sinus PE Decongestant (Phenylephrine HCl) 10 Mg Tablet 10 Mg PO Q4H PRN Advil (Ibuprofen) 200 Mg Capsule 400 Mg PO Q8H PRN Assessment/Pt Instructions 1. Acute TIA--improving 2. Hypertension 3. Hyperlipidemia Discharge Instructions Discharge Diet: Cardiac Diet Activity as Tolerated: Yes Discharge Physical Examination General Appearance: Alert, Oriented X3, Cooperative, No Acute Distress Respiratory: Clear to Auscultation Cardiovascular: Regular Rate Abdominal: Normal Bowel Sounds, Soft, No Tenderness Extremities: No Clubbing, No Cyanosis, No Edema Skin: No Rashes Neuro: Normal Gait, Strength at 5/5 X4 Ext, Cranial Nerves 3-12 NL, Other (mild slurred speech) Psych/Mental Status: Mental Status NL, Mood NL Allergies: Coded Allergies: Penicillins (Verified Allergy, Severe, 02/05/20) "HIVES AND THROAT SWELLING" Sulfa (Sulfonamide Antibiotics) (Verified Allergy, Severe, 02/05/20) "HIVES AND THROAT SWELLING" Discharge Summary Date of Admission February 05, 2020 at 20:05 Date of Discharge Discharge Date: February 06, 2020 Clinical Quality Measures DVT/VTE Risk/Contraindication: Risk Factor Score Per Nursin RFS Level Per Nursing on Admit: 2=Moderate NANCY ODELL DO February 06, 2020 12:49
== END 2020-02-06 13:18 | disposition home or self-care (01) | DRG 69 ==
LOC: EDUNIT# 19:10 → ER 19:12 → ICU 20:05
PROVIDERS: ADMIT Family Medicine; ATTEND Family Medicine
DX: G45.9 Transient cerebral ischemic attack, unspecified (principal); I10 Essential (primary) hypertension; E78.5 Hyperlipidemia, unspecified; R73.9 Hyperglycemia, unspecified; R29.702 NIHSS score 2; Z90.710 Acquired absence of both cervix and uterus; Z90.722 Acquired absence of ovaries, bilateral
CPT/HCPCS: 36415; 70450; 70496; 70498; 71045; 80053; 80061; 81000; 82962; 84484; 85025; 85379; 85610; 85730; 93005; 93041; 93306; 96361; 96374

== ENCOUNTER → 2020-02-21 | Outpatient (CLI) | payer MEDICARE ==
[~2020-02-21] MED LIST: ASPI-586 PO; ATOR10TA66 PO; CLOP75TA28 PO; FAMO-208 PO; IBUP200C11 PO; METO50TA7 PO; PEG15DRO9 OP; [UNRECOGNIZED DRUG - CODE] PO
--- NOTE | 2020-02-21 18:35 | Diagnostic Imaging Report ---
PROCEDURE: MR imaging of the brain without contrast. TECHNIQUE: Multiplanar, multisequence MR imaging of the brain was performed without contrast. INDICATION: CVA, right hand weakness. FINDINGS: There are no prior MRI examinations available for comparison. The CTA head and neck exam of 02/05/2020 failed to show any sign of a large vessel occlusion, thrombus, or hemodynamically significant stenosis. On the diffusion series of this exam, there is a 1.4 x 1.8 cm oval, fairly well-defined area of increased signal in the left thalamus. There is no corresponding area of diminished signal in this region on the ADC series to suggest an acute infarct and most likely, this area of abnormal signal represents a subacute nonhemorrhagic infarct. There may be minimal hemorrhagic transformation in this area on the T1 series. There is no gómez parenchymal hemorrhage identified. There is no other abnormal signal arising from the brain on the diffusion series to indicate an area of acute ischemia. There is no mass, shift of the midline, or extra-axial fluid collection noted. The ventricles are not abnormally dilated and stable in size when compared to the prior CT exam. The sella is not enlarged and the expected carotid flow voids are evident bilaterally. The orbits are symmetrical and within normal limits. The sinuses are generally clear. The seventh and eighth nerve complexes are unremarkable. IMPRESSION: 1. There is a 1.4 x 1.8 cm area of increased signal in the left thalamus on the diffusion series. This finding is most likely due to a subacute nonhemorrhagic infarct. There is no acute intracranial abnormality noted. 2. There is no mass, gómez parenchymal hemorrhage, or shift of the midline. Dictated by: Dictated on workstation # [id number]
== END ==
LOC: RAD 14:02
PROVIDERS: ATTEND Family Medicine
DX: I63.9 Cerebral infarction, unspecified (principal); R47.89 Other speech disturbances; R53.1 Weakness
CPT/HCPCS: 70551

== ENCOUNTER 2020-03-10 13:25 | Outpatient (RCR) | payer MEDICARE | END 2020-03-10 15:06 | disposition home or self-care (01) | PROVIDERS: ATTEND Family Medicine | DX: I69.328 Other speech and language deficits following cerebral infarction (principal) ==

== ENCOUNTER → 2023-04-25 | Outpatient (CLI) | payer MEDICARE ==
--- NOTE | 2023-04-25 17:40 | Diagnostic Imaging Report ---
PROCEDURE: US carotid duplex, bilateral. TECHNIQUE: Multiple real-time grayscale images were obtained over the carotid arteries in various projections, bilaterally. Additional spectral analysis and color Doppler duplex images were also obtained. INDICATION: Carotid artery stenosis. FINDINGS: There is some tortuosity to the internal carotid arteries bilaterally. However, velocities are normal bilaterally. There is no stenosis or velocity elevation. Both vertebral arteries show antegrade flow. IMPRESSION: No evidence of a hemodynamically significant stenosis. Parameters based on the consensus panel [employer] and Doppler ultrasound criteria published July 2003, Radiology, Volume 229. DOPPLER (peak systolic velocity M/S Right Left CCA .69 .71 ICA Proximal .53 .71 ICA Mid .63 .50 ICA Distal .62 .47 RATIO .91 1.0 ECA .69 .41 VERT .45 .40 Dictated by: Dictated on workstation # [id number]
== END ==
LOC: RAD 13:42
PROVIDERS: ATTEND Family Medicine
DX: I65.29 Occlusion and stenosis of unspecified carotid artery (principal)
CPT/HCPCS: 93880

== ENCOUNTER → 2023-05-04 | Outpatient (CLI) | payer MEDICARE ==
--- NOTE | 2023-05-04 12:04 | Diagnostic Imaging Report ---
INDICATION: Left breast fullness. CORRELATION is made with a diagnostic mammogram earlier the same day. Sonographic interrogation of the area of fullness in the upper left breast was performed. No sonographic abnormalities identified. No solid or cystic mass is detected. IMPRESSION: BI-RADS Category 1 No sonographic abnormality is detected. ACR BI-RADS Category 1: Negative. Result letter will be mailed to the patient. Note: At least 10% of breast cancer is not imaged by mammography. Dictated by: Dictated on workstation # [id number]
--- NOTE | 2023-05-04 12:21 | Diagnostic Imaging Report ---
Indication: Left breast fullness and heaviness. Comparison is made with prior mammograms dating back to 2013. 2-D and 3-D bilateral diagnostic mammography was performed with CAD. A marker was placed on the left breast at the area of fullness in the upper portion. Both breasts are heterogeneously dense, limiting the sensitivity of mammography. Partially calcified nodule in the upper outer right breast is stable. The circumscribed nodule in the retroareolar inferior left breast is stable. No new masses are seen. No malignant-appearing microcalcifications are identified. Specifically, no abnormality at the area of fullness in the upper left breast is identified. Axillae are unremarkable. IMPRESSION: BI-RADS Category 0 No mammographic features suspicious for malignancy are identified. Even so, directed sonographic interrogation of the area of fullness in the upper left breast is recommended and will be performed today. ACR BI-RADS Category 0: Incomplete. (Needs additional imaging evaluation). Result letter will be mailed to the patient. Note: At least 10% of breast cancer is not imaged by mammography. Dictated by: Dictated on workstation # [id number]
== END ==
LOC: RAD 09:18
PROVIDERS: ATTEND Family Medicine
DX: N63.20 Unspecified lump in the left breast, unspecified quadrant (principal)
CPT/HCPCS: 76642; 77066; G0279; 77062